=== PATIENT | male | born 1955 | race Caucasian/White ===

== ENCOUNTER → 2016-09-16 | Outpatient (CLI) | payer BC ==
[2016-09-16 07:34] LABS: Basophils # (A) 0.1 k/uL (0-0.2); Basophils % (A) 1 %; CHCM 33.7; Eosinophils # (A) 0.2 k/uL (0-0.7); Eosinophils % (A) 2 %; HCT 51.4 % (39.0-53.0); HDW 2.49; HGB 16.7 gm/dL (13.0-17.5); Luc # (Auto) 0.27; Luc % (Auto) 3; Lymphocytes # (A) 2.4 k/uL (1.0-4.8); Lymphocytes % (A) 23 %; MCHC 32.5 g/dL (31.0-37.0); MCV 98.2 fL (80.0-100.0); Monocytes # (A) 0.6 k/uL (0-1.0); Monocytes % (A) 6 %; Neutrophils # (A) 6.7 k/uL (1.3-7.7); Neutrophils % (A) 66 %; RBC 5.24 m/uL (4.30-5.90); RDW 13.6 % (11.5-15.5); WBC 10.2 k/uL (3.8-10.6); WBC (Perox) 10.14
[2016-09-16 07:37] LABS: ALT 33 U/L (21-72); AST 20 U/L (17-59); Alkaline Phosphatase 74 U/L (38-126); Anion Gap 11 mmol/L; Appearance,Urine Clear (Clear); Bilirubin,Urine Negative (Negative); Blood Urea Nitrogen 13 mg/dL (9-20); Calcium 9.6 mg/dL (8.4-10.2); Carbon Dioxide 25 mmol/L (22-30); Chloride 104 mmol/L (98-107); Cholesterol 137 mg/dL (<200); Creatine Kinase 64 U/L (55-170); Glucose 190 mg/dL (74-99); Glucose,Urine (UA) 3+ (Negative); HDL Cholesterol 34 mg/dL (40-60); Ketones,Urine Negative (Negative); Leukocyte Esterase,Urine Negative (Negative); Mucus,Urine Rare /hpf; Nitrite,Urine Negative (Negative); Non-African American GFR(MDRD) >60 (>60 ml/min/1.73 sqM); PH, Urine 5.5 (5.0-8.0); Particle Count 1653; Potassium 4.6 mmol/L (3.5-5.1); Protein,Urine Negative (Negative); RBC,Urine 6 /hpf (0-5); Sodium 140 mmol/L (137-145); Specific Gravity,Urine 1.015 (1.001-1.035); Total Bilirubin 0.5 mg/dL (0.2-1.3); Triglycerides 206 mg/dL (<150); UA Billing (MACRO vs. MICRO) MICRO; Uric Acid 3.8 mg/dL (3.5-8.5); Urobilinogen,Urine <2.0 mg/dL (<2.0); WBC,Urine 1 /hpf (0-5)
[2016-09-16 08:48] LABS: Hemoglobin A1C 8.9 % (4.2-6.1)
== END | disposition home or self-care (01) ==
LOC: LABWHC1 06:36
PROVIDERS: ATTEND Internal Medicine
DX: G47.33 Obstructive sleep apnea (adult) (pediatric) (principal); I10 Essential (primary) hypertension; E78.5 Hyperlipidemia, unspecified; E11.9 Type 2 diabetes mellitus without complications
CPT/HCPCS: 36415; 80053; 80061; 81001; 82306; 82550; 83036; 84439; 84443; 84550; 85025

== ENCOUNTER → 2017-04-26 | Outpatient (CLI) | payer BC ==
[2017-04-26 08:32] LABS: Basophils # (A) 0.1 k/uL (0-0.2); Basophils % (A) 1 %; CH 33.3; CHCM 33.2; Eosinophils # (A) 0.3 k/uL (0-0.7); Eosinophils % (A) 3 %; HDW 2.39; HGB 16.7 gm/dL (13.0-17.5); Luc # (Auto) 0.21; Luc % (Auto) 2; Lymphocytes # (A) 2.9 k/uL (1.0-4.8); Lymphocytes % (A) 29 %; MCH 33.7 pg (25.0-35.0); MCHC 33.4 g/dL (31.0-37.0); MCV 101.1 fL (80.0-100.0); Macrocytosis Slight; Mean Platelet Volume 7.7; Monocytes # (A) 0.6 k/uL (0-1.0); Monocytes % (A) 6 %; Neutrophils % (A) 59 %; RBC 4.95 m/uL (4.30-5.90); RDW 14.7 % (11.5-15.5); WBC 10.1 k/uL (3.8-10.6); WBC (Perox) 7.93
[2017-04-26 08:42] LABS: ALT 34 U/L (21-72); AST 18 U/L (17-59); Alkaline Phosphatase 59 U/L (38-126); Anion Gap 12 mmol/L; Blood Urea Nitrogen 15 mg/dL (9-20); Calcium 9.7 mg/dL (8.4-10.2); Carbon Dioxide 24 mmol/L (22-30); Chloride 107 mmol/L (98-107); Cholesterol 146 mg/dL (<200); Creatine Kinase 61 U/L (55-170); Glucose 152 mg/dL (74-99); HDL Cholesterol 37 mg/dL (40-60); Non-African American GFR(MDRD) >60 (>60 ml/min/1.73 sqM); Sodium 143 mmol/L (137-145); Total Bilirubin 0.4 mg/dL (0.2-1.3); Uric Acid 3.4 mg/dL (3.5-8.5)
[2017-04-26 09:08] LABS: Hemoglobin A1C 8.1 % (4.2-6.1)
== END | disposition home or self-care (01) ==
LOC: LABWHC1 08:05
PROVIDERS: ATTEND Internal Medicine
DX: I10 Essential (primary) hypertension (principal); E78.5 Hyperlipidemia, unspecified; E11.9 Type 2 diabetes mellitus without complications
CPT/HCPCS: 36415; 80053; 80061; 82550; 83036; 84439; 84443; 84550; 85025

== ENCOUNTER → 2017-08-13 | Outpatient (CLI) | payer BC ==
--- NOTE | 2017-08-13 14:19 | US ---
EXAMINATION TYPE: US kidneys/renal and bladder DATE OF EXAM: 08/13/2017 COMPARISON: CT 02/13/2011 CLINICAL HISTORY: Benign Essential Microscopic Hematuria R31.1. EXAM MEASUREMENTS: Right Kidney: 13.3 x 7.4 x 6.4 cm Left Kidney: 13.0 x 6.4 x 6.5 cm Right Kidney: No hydronephrosis. Hyperechoic area visualized measuring 0.9 x 1.1 x 1.0 cm. Compatible with findings on prior CT, probable angiomyolipoma. Echogenic foci visualized in the lower pole jeanie uring 1.2 cm Left Kidney: No hydronephrosis. Cystic area visualized mid pole measuring 0.9 x 0.9 x 1.0 cm Bladder: wnl Bilateral Jets seen: Yes There is no evidence for hydronephrosis at this point in time. Cortical medullary differentiation is maintained. The urinary bladder is anechoic. Bilateral ureteral jets are seen. IMPRESSION: Possible nonobstructing right nephrolithiasis on the right. Angiomyolipoma on the right.
== END | disposition home or self-care (01) ==
LOC: RADUSWWP 13:27
PROVIDERS: ATTEND Internal Medicine
DX: D17.71 Benign lipomatous neoplasm of kidney (principal); R31.1 Benign essential microscopic hematuria
CPT/HCPCS: 76770

== ENCOUNTER 2017-11-23 00:51 | Observation (INO) | payer BC ==
[2017-11-23] MEDS ORDERED: NITROGLYCERIN SL TABS 0.4 MG TAB SUBLINGUAL STA (01:07)
[2017-11-23] MEDS ORDERED: MORPHINE SULFATE 4 MG/ML SYRINGE IVP STA (01:07)
[2017-11-23] MEDS ORDERED: ASPIRIN 81 MG PO STA (01:07)
[2017-11-23 01:26] LABS: Basophils # (A) 0.1 k/uL (0-0.2); Basophils % (A) 0 %; Eosinophils # (A) 0.4 k/uL (0-0.7); Eosinophils % (A) 3 %; HCT 46.3 % (39.0-53.0); HGB 15.8 gm/dL (13.0-17.5); Lymphocytes # (A) 3.1 k/uL (1.0-4.8); Lymphocytes % (A) 19 %; MCH 31.4 pg (25.0-35.0); MCHC 34.1 g/dL (31.0-37.0); MCV 91.9 fL (80.0-100.0); Monocytes # (A) 0.8 k/uL (0-1.0); Monocytes % (A) 5 %; Neutrophils # (A) 11.3 k/uL (1.3-7.7); Neutrophils % (A) 71 %; Platelet Count 251 k/uL (150-450); RBC 5.03 m/uL (4.30-5.90); WBC 15.9 k/uL (3.8-10.6)
[2017-11-23 01:35] LABS: ALT 40 U/L (21-72); AST 21 U/L (17-59); Albumin 4.4 g/dL (3.5-5.0); Alkaline Phosphatase 81 U/L (38-126); Anion Gap 14 mmol/L; Blood Urea Nitrogen 22 mg/dL (9-20); Calcium 10.3 mg/dL (8.4-10.2); Carbon Dioxide 23 mmol/L (22-30); Chloride 102 mmol/L (98-107); Glucose 142 mg/dL (74-99); Magnesium 1.4 mg/dL (1.6-2.3); Sodium 139 mmol/L (137-145); Total Bilirubin 0.3 mg/dL (0.2-1.3); Total Protein 6.8 g/dL (6.3-8.2)
[2017-11-23 01:36] LABS: Partial Thromboplastin Time 26.3 sec (22.0-30.0); Prothrombin Time 10.1 sec (9.0-12.0)
--- NOTE | 2017-11-23 01:36 | XR ---
EXAMINATION TYPE: XR chest 2V DATE OF EXAM: 11/23/2017 COMPARISON: 12/15/2014 HISTORY: Chest pain TECHNIQUE: Frontal and lateral views of the chest are obtained. FINDINGS: There is no heart failure nor confluent pneumonic infiltrate. There are sternal wires. Hea rt size is normal. Costophrenic angles are clear. Is some mild pleural thickening at the left cardiop hrenic angle. Bony thorax is intact. IMPRESSION: No active cardiopulmonary disease. No change.
[2017-11-23 01:52] LABS: Creatine Kinase 74 U/L (55-170)
[2017-11-23 02:05] LABS: Creatine Kinase MB 0.8 ng/mL (0.0-2.4); Troponin I <0.012 ng/mL (0.000-0.034)
[2017-11-23] MEDS ORDERED: ACETAMINOPHEN TAB 325 MG TAB PO PRN (03:24)
[2017-11-23] MEDS ORDERED: NITROGLYCERIN SL TABS 0.4 MG TAB SUBLINGUAL PRN (03:24)
[2017-11-23] MEDS ORDERED: MORPHINE SULFATE 4 MG/ML SYRINGE IVP PRN (03:24)
--- NOTE | 2017-11-23 03:24 | ED ---
Chest Pain HPI - General Chief Complaint: Chest Pain Stated Complaint: chest pain HX of bypass Time Seen by Provider: 11/23/17 01:01 Source: patient Mode of arrival: ambulatory Limitations: no limitations - History of Present Illness Initial Comments: 61 years old male presents with a chest pain started at 11:30 last night, he has history of ischemic heart disease he status post CABG 3 years ago at that time he was exactly exerting himself but he was busy cleaning his fish. He denies any nausea no vomiting no cold sweats pain initially was 10/10 now it has gotten a lot better right now is 5/10 he did seen his jacquard plate maker recently he said he hasn't had any stress test. He denies any shortness of breath he denies any pleuritic chest pain. No headaches no stiff neck no abdominal pain no frequency urgency dysuria no signs of CVA or TIA - Related Data Allergies Allergy/AdvReac Type Severity Reaction Status Date / Time No Known Allergies Allergy Verified 11/23/17 00:57 Review of Systems ROS Statement: Those systems with pertinent positive or pertinent negative responses have been documented in the HPI. ROS Other: All systems not noted in ROS Statement are negative. EKG Findings - EKG Comments: EKG Findings:: EKG is normal sinus rhythm ventricular rate is 87 CA interval is 186 QRS duration is 152 QT/QTc is 410/493 noticed some right bundle branch block Past Medical History Past Medical History: Coronary Artery Disease (CAD), Diabetes Mellitus History of Any Multi-Drug Resistant Organisms: None Reported Past Surgical History: Cholecystectomy, Coronary Bypass/CABG, Hernia Repair, Orthopedic Surgery Past Psychological History: No Psychological Hx Reported Smoking Status: Current some day smoker Past Alcohol Use History: None Reported Past Drug Use History: None Reported General Exam - General Exam Comments Initial Comments: General: The patient is awake and alert, in no distress, and does not appear acutely ill. Skin: Skin is warm and dry and no rashes or lesions are noted. Eye: Pupils are equal, round and reactive to light, extra-ocular movements are intact; there is normal conjunctiva bilaterally. Ears, nose, mouth and throat: There are moist mucous membranes and no oral lesions. Neck: The neck is supple, there is no tenderness or JVD. Cardiovascular: There is a regular rate and rhythm. No murmur, rub or gallop is appreciated. Respiratory: To auscultation bilateral, no wheezing no rhonchi no distress respiratory lozano noticed Gastrointestinal: Soft, non-distended, non-tender abdomen without masses or organomegaly noted. There is no rebound or guarding present. Bowel sounds are unremarkable. Back: There is no tenderness to palpation in the midline. There is no obvious deformity. Musculoskeletal: Normal ROM, no tenderness, There is no pedal edema. There is no calf tenderness or swelling. No cords were appreciated. Neurological: CN II-XII intact, Cranial nerves III through XII are intact. There are no obvious motor or sensory deficits. Coordination appears grossly intact. Speech is normal. Psychiatric: Cooperative, appropriate mood & affect, normal judgment. Limitations: no limitations Course Vital Signs 11/23/17 11/23/17 11/23/17 00:52 01:16 02:14 Temperature 97.8 F Pulse Rate 91 90 Pulse Rate [ 88 Casing Tester ] Respiratory 18 18 Rate Blood Pressure 128/59 110/65 O2 Sat by Pulse 97 96 Oximetry Upon reassessment noticed that EKG is unremarkable noticed white count is slightly elevated is 15.9 with slight chest left shift troponin EKG comprehensive metabolic panel vitals and chest x-ray are unremarkable considering his history of heart disease and Is comparatively her younger age [address] Burgess her service cardiology be consulted Disposition Clinical Impression: Chest pain, Leukocytosis Disposition: ADMITTED IP TO THIS HOSP Condition: Good Referrals: Sherman Rodriguez MD [Primary Care Provider] - 1-2 days
[2017-11-23 08:21] LABS: Creatine Kinase 62 U/L (55-170)
[2017-11-23 08:34] LABS: Creatine Kinase MB 0.7 ng/mL (0.0-2.4); Troponin I <0.012 ng/mL (0.000-0.034)
[2017-11-23] MEDS ORDERED: MORPHINE ORAL SOLN 10 MG/5 ML CUP PO PRN (10:20)
--- NOTE | 2017-11-23 12:02 | P.CRDCN ---
History of Present Illness Consult date: 11/23/17 History of present illness: Mr. Garcia is a pleasant 61-year-old male past medical history significant for coronary artery disease, paroxysmal atrial fibrillation, hypertension, dyslipidemia. He underwent 3-vessel bypass grafting in 2008, ROCHA- LAD, VG-OM1 and VG-PLB. He follows with Dr. Nash in the office. We have been asked to see him in consultation for chest pain. He states yesterday he went fishing in the morning came home and was starting to clean his fish. He developed a pain in the left precordial region described as a heavy tight sensation the pain remained localized to the precordial region with no radiation to the arms back neck or jaw. He denies associated shortness of breath, dizziness, palpitations, nausea, vomiting or diaphoresis. This sensation persisted for about a half an hour and he decided to present to the hospital for evaluation. The time he arrived to the hospital the intensity had decreased and he continued to feel a mild tenderness in the anterior upper midsternal region. EKG reveals sinus mechanism with right bundle branch block pattern. Chest x-ray is negative for an acute cardiopulmonary process. Laboratory data reviewed, WBC 15.9, hemoglobin 15.8, platelets 251, sodium 139, potassium 4.0, magnesium 1.4, cardiac enzymes negative 2. Current cardiac medications include enalapril 5 mg daily, aspirin 81 mg daily, atorvastatin 80 mg daily, and Lopressor 50 mg daily. He also takes metformin, Actos and Amaryl. Most recent Lexiscan stress test performed in the office February 2017 reveals an abnormal perfusion with a small reversible defect involving the apical lateral segment. Most recent echocardiogram performed in the office February 2017 reveals preserved left ventricular systolic function with ejection fraction 55%, mild concentric left ventricular hypertrophy, mild mitral regurgitation. Review of Systems At the time of my exam: CONSTITUTIONAL: Denies fever. Denies chills. EYES: Denies blurred vision. Denies vision changes. Denies eye pain. EARS, NOSE, MOUTH & THROAT: Denies headache. Denies sore throat. Denies ear pain. CARDIOVASCULAR: Tender sensation upper anterior midsternal region. Denies shortness of breath. Denies orthopnea. Denies PND. Denies palpitations. RESPIRATORY: Denies cough. GASTROINTESTINAL: Denies abdominal pain. Denies diarrhea. Denies constipation. Denies nausea. Denies vomiting. MUSCULOSKELETAL: Denies myalgias. INTEGUMENTARY: Denies pruitis. Denies rash. NEUROLOGIC: Denies numbness. Denies tingling. Denies weakness. PSYCHIATRIC: Denies anxiety. Denies depression. ENDOCRINE: Denies fatigue. Denies weight change. Denies polydipsia. Denies polyurina. GENITOURINARY: Denies burning, hematuria or urgency with micturation. HEMATOLOGIC: Denies history of anemia. Denies bleeding. Past Medical History Past Medical History: Coronary Artery Disease (CAD), Diabetes Mellitus History of Any Multi-Drug Resistant Organisms: None Reported Past Surgical History: Cholecystectomy, Coronary Bypass/CABG, Hernia Repair, Orthopedic Surgery Past Psychological History: No Psychological Hx Reported Smoking Status: Current some day smoker Past Alcohol Use History: None Reported Past Drug Use History: None Reported - Past Family History Father Family Medical History: No Reported History Additional Family Medical History / Comment(s): Father is healthy and is 87yrs old. Mother Family Medical History: No Reported History Additional Family Medical History / Comment(s): Mother is healthy and is 85 yrs old. Medications and Allergies Home Medications Medication Instructions Recorded Confirmed Type Aspirin EC [Ecotrin Low Dose] 81 mg PO DAILY 11/23/17 11/23/17 History Atorvastatin [Lipitor] 80 mg PO HS 11/23/17 11/23/17 History Enalapril [Vasotec] 5 mg PO DAILY 11/23/17 11/23/17 History Glimepiride [Amaryl] 4 mg PO AC-BID 11/23/17 11/23/17 History Liraglutide [Victoza 2-Rodger] 1.2 mg SQ DAILY 11/23/17 11/23/17 History Metoprolol Tartrate [Lopressor] 50 mg PO BID 11/23/17 11/23/17 History Nitroglycerin Sl Tabs [Nitrostat] 0.4 mg SUBLINGUAL Q5M PRN 11/23/17 11/23/17 History sitaGLIPtin PHOS/metFORMIN HCL 1 tab PO DAILY 11/23/17 11/23/17 History [Janumet Xr 100-1,000 mg Tablet] Allergies Allergy/AdvReac Type Severity Reaction Status Date / Time No Known Allergies Allergy Verified 11/23/17 07:21 Physical Exam Vitals: Vital Signs Temp Pulse Pulse Resp BP Pulse Ox 11/23/17 08:24 85 16 114/74 98 11/23/17 06:37 98.7 F 79 20 126/69 97 11/23/17 05:00 88 20 118/83 97 11/23/17 04:00 68 18 98/56 98 11/23/17 02:14 90 18 110/65 96 11/23/17 01:16 88 11/23/17 00:52 97.8 F 91 18 128/59 97 Intake and Output 11/22/17 11/23/17 11/23/17 22:59 06:59 14:59 Other: Weight 55.792 kg Blood pressure 114/74 heart rate 85 afebrile maintaining oxygen saturation on nasal cannula 3 L GENERAL: This is a 61-year-old male in no apparent distress at the time of my examination. HEENT: Head is atraumatic, normocephalic. Pupils are equal, round. Sclerae anicteric. Conjunctivae are clear. Mucous membranes of the mouth are moist. Neck is supple. There is no jugular venous distention. No carotid bruit is heard. LUNGS: Clear to auscultation no wheezes, rales or rhonchi. No chest wall tenderness is noted on palpation or with deep breathing. HEART: Regular rate and rhythm without murmurs, rubs or gallops. S1 and S2 heard. ABDOMEN: Soft, nontender. Bowel sounds are heard. No organomegaly noted. EXTREMITIES: No evidence of peripheral edema and no calf tenderness noted. VASCULAR: Radial and dorsalis pedis pulses palpated, no evidence of clubbing. NEUROLOGIC: Patient is awake, alert and oriented x3. Results 11/23/17 01:10 11/23/17 01:10 Cardiac Enzymes 11/23/17 11/23/17 11/23/17 Range/Units 01:10 01:10 07:27 AST 21 (17-59) U/L CK-MB (CK-2) 0.8 0.7 (0.0-2.4) ng/mL Troponin I <0.012 <0.012 (0.000-0.034) ng/mL Coagulation 11/23/17 Range/Units 01:10 PT 10.1 (9.0-12.0) sec APTT 26.3 (22.0-30.0) sec CBC 11/23/17 Range/Units 01:10 WBC 15.9 H (3.8-10.6) k/uL RBC 5.03 (4.30-5.90) m/uL Hgb 15.8 (13.0-17.5) gm/dL Hct 46.3 (39.0-53.0) % Plt Count 251 (150-450) k/uL Comprehensive Metabolic Panel 11/23/17 Range/Units 01:10 Sodium 139 (137-145) mmol/L Potassium 4.0 (3.5-5.1) mmol/L Chloride 102 (98-107) mmol/L Carbon Dioxide 23 (22-30) mmol/L BUN 22 H (9-20) mg/dL Creatinine 0.70 (0.66-1.25) mg/dL Glucose 142 H (74-99) mg/dL Calcium 10.3 H (8.4-10.2) mg/dL AST 21 (17-59) U/L ALT 40 (21-72) U/L Alkaline Phosphatase 81 (38-126) U/L Total Protein 6.8 (6.3-8.2) g/dL Albumin 4.4 (3.5-5.0) g/dL Current Medications Generic Name Dose Route Start Last Admin Trade Name Freq PRN Reason Stop Dose Admin Acetaminophen 650 mg 11/23/17 03:24 Tylenol Tab PO Q4HR PRN Pain Aspirin 325 mg 11/24/17 09:00 Aspirin PO DAILY KEY Morphine Sulfate 2 mg 11/23/17 03:24 Morphine Sulfate (Inj) IVP Q5M PRN Chest Pain Nitroglycerin 0.4 mg 11/23/17 03:24 Nitrostat SUBLINGUAL Q5M PRN Chest Pain Intake and Output 11/22/17 11/23/17 11/23/17 22:59 06:59 14:59 Other: Weight 55.792 kg 11/23/17 01:10 11/23/17 01:10 Assessment and Plan Assessment: ASSESSMENT 1. Unstable angina 2. History of coronary artery disease s/p 3-vessel bypass grafting 3. Hypertension 4. Dyslipidemia 5. Nicotine dependence PLAN From cardiology perspective, this has been discussed with his primary parimutuel ticket cashier Dr. Nash and cardiac catherization is recommended. I have discussed the risks, benefits and alternative therapies for the above- mentioned procedure and for both sedation/analgesia as well as necessary blood product administration, if indicated, as they pertain to this patient. The patient has indicated understanding and acceptance of the risks and procedures discussed. Questions have been answered appropriately. Case has been boarded for tomorrow, NPO after midnight. Further recommendations based on clinical course. Thank you kindly for this consultation. Nurse Practitioner note has been reviewed, I agree with a documented findings and plan of care. Patient was seen and examined.
[2017-11-23] MEDS ORDERED: ALPRAZolam 0.25 MG TAB PO PRN (12:40)
[2017-11-23] MEDS ORDERED: ALPRAZolam 0.5 MG TAB PO PRN (12:40)
[2017-11-23] MEDS ORDERED: SODIUM CHLORIDE 0.9% 1,000 ML in EMPTY BAG 1 BAG IV ONE (12:40)
[2017-11-23 13:54] LABS: Creatine Kinase 58 U/L (55-170)
[2017-11-23 14:07] LABS: Creatine Kinase MB 0.7 ng/mL (0.0-2.4); Troponin I <0.012 ng/mL (0.000-0.034)
[2017-11-23] MEDS: METOPROLOL TARTRATE 50 MG TAB PO SCH ×2 (18:20→20:59)
[2017-11-23] MEDS: LISINOPRIL 10 MG TAB PO SCH (18:20)
[2017-11-23 20:39] LABS: Glucose,Whole Blood 166 mg/dL (75-99)
[2017-11-23] MEDS: ATORVASTATIN 80 MG TAB PO SCH (20:59)
[2017-11-23] MEDS: INSULIN ASPART 100 UNIT/ML 1 ML 10 ML VIAL SQ SCH (21:00)
[2017-11-24] MEDS: METOPROLOL TARTRATE 50 MG TAB PO SCH ×2 (05:20→21:08)
[2017-11-24] MEDS: LISINOPRIL 10 MG TAB PO SCH (05:20)
[2017-11-24 07:16] LABS: Glucose,Whole Blood 179 mg/dL (75-99)
[2017-11-24 08:07] LABS: Cholesterol 121 mg/dL (<200); HDL Cholesterol 27 mg/dL (40-60); LDL Cholesterol,Calculated 60 mg/dL (0-99); Triglycerides 169 mg/dL (<150)
[2017-11-24] MEDS ORDERED: IV FLUID CONTINUATION 1,000 ML IV ONE (08:55)
[2017-11-24] MEDS ORDERED: fentaNYL (PF) 50 MCG/ML 2 ML AMP ONE (08:57)
[2017-11-24] MEDS ORDERED: MIDAZOLAM 2 MG/2 ML VIAL ONE ×2 (08:57→11:30)
[2017-11-24] MEDS ORDERED: ASPIRIN 325 MG TAB PO SCH (09:00)
[2017-11-24] MEDS ORDERED: fentaNYL (PF) 50 MCG/ML 2 ML AMP IV ONE (09:02)
[2017-11-24] MEDS ORDERED: MIDAZOLAM 2 MG/2 ML VIAL IV ONE (09:02)
[2017-11-24] MEDS ORDERED: LIDOCAINE 2% INJ 20 MG/ML SQ ONE ×2 (09:09→12:35)
[2017-11-24] MEDS: INSULIN ASPART 100 UNIT/ML 1 ML 10 ML VIAL SQ SCH ×4 (09:41→21:08)
[2017-11-24] MEDS ORDERED: RX INFO: IV CONTRAST WAS GIVEN 1 EACH MISC MISCELLANE PRN ×2 (09:44→12:45)
[2017-11-24] MEDS ORDERED: IOPAMIDOL-370 125ML BTL INJ ONE (09:50)
--- NOTE | 2017-11-24 10:03 | P.PCN ---
Date of Procedure: 11/24/17 Preoperative Diagnosis: Chest pain with history of a positive stress test. Postoperative Diagnosis: ROCHA graft to the LAD and vein graft to the circumflex are patent. The vein graft to the RCA is total. There is significant lesion involving the PLV and PDA branches. Description of Procedure: HISTORY: Mr. Macario is a 61-year-old gentleman with history of previous bypass surgery with the ROCHA graft to the LAD, vein graft to circumflex and also vein graft to the PLV branch of the RCA. Patient had a stress test in February 2017 which showed some ischemia in the inferolateral segments. Patient is admitted now to the hospital with the left-sided chest pain with some atypical features. Cardiac enzyme studies are negative. Because of multiple risk factors and known ischemic heart disease, patient is advised to have cardiac catheterization. CONSENT:I have discussed the risks, benefits and alternative therapies for the above-mentioned procedure and for both sedation/analgesia as well as necessary blood product administration, if indicated, as they pertain to this patient. The patient has indicated understanding and acceptance of the risks and procedures discussed. PROCEDURE: Patient was brought to the lab in a fasting state. Patient was given some IV sedation. The right groin is infiltrated with lidocaine and right femoral artery was entered using Seldinger technique. A 6-[place] catheter was left in place and selective coronary arteriography and left ventriculography was performed. Patient tolerated the procedure well. Femoral angiogram was performed and Angio-Seal was applied for hemostasis. No immediate complications were noted and patient was transferred to [facility] in a stable condition Conscious Sedation: Versed 1mg Fentanyl 50 g Duration 30minutes HEMODYNAMICS: The aortic pressure is 130/70. Left ventricular end-diastolic pressure was about 10-12. There was no gradient across the aortic valve. SELECTIVE CORONARY ARTERIOGRAPHY: LEFT MAIN: Ectatic and free of any significant focal lesions. THE LEFT ANTERIOR DESCENDING CORONARY ARTERY: Huge caliber vessel with ectatic changes. There is about eccentric 80% stenosis proximally and totally occluded in the midportion with some competent to flow. There are small diagonal and septal branches before total occlusion. THE LEFT CIRCUMFLEX AND IS CORONARY ARTERY: This is a also good caliber vessel and totally occluded in the proximal portion. THE RIGHT CORONARY ARTERY: This is also ectatic huge caliber vessel giving rise to PLV and PDA branches. The PLV branch has about 95 % stenosis. The PDA branch also has a 95% stenosis. The PLV branch lesion is old but the PDA branch lesion seemed to be new. However the distal distribution beyond the lesion appears to be small. New THE ROCHA GRAFT TO THE LAD: This is patent throat its length and also to distal anastomosis. The LAD is filled slowly but appears to be diffusedly diseased was noted to see a. No Sigmund focal lesions. The vein graft to the CIRCUMFLEX: Is patent at the proximal and distal anastomosis. The distal circumflex is free of any significant occlusive disease. THE VEIN GRAFT TO THE RIGHT RCA: This seemed to be totally occluded. LEFT VENTRICULOGRAPHY: Not performed FINAL IMPRESSION: Diffuse coronary artery disease with a total occlusion of the mid LAD and also mid circumflex with significant lesion involving the PLV and PDA branch of the RCA. The main ROCHA graft to LAD is patent. The vein graft to the circumflex is patent. The vein graft to the RCA is totally occluded PLAN: The films are reviewed with Dr. IBIS Velez was planning to do possible intervention of the PLV and PDA lesions later today. PROGNOSIS: Fair
[2017-11-24] MEDS ORDERED: IV FLUID CONTINUATION 200 ML IV ONE (11:15)
[2017-11-24] MEDS ORDERED: diphenhydrAMINE 50 MG/ML 1 ML VIAL ONE (11:30)
[2017-11-24] MEDS ORDERED: diphenhydrAMINE 50 MG/ML 1 ML VIAL IVP ONE (11:33)
[2017-11-24] MEDS ORDERED: MIDAZOLAM 2 MG/2 ML VIAL IVP ONE (11:33)
[2017-11-24] MEDS ORDERED: BIVALIRUDIN BOLUS 250 MG/50 ML IV ONE (11:40)
[2017-11-24] MEDS ORDERED: BIVALIRUDIN 250 MG in SODIUM CHLORIDE 0.9% 50 ML IV ONE ×2 (11:41→12:00)
[2017-11-24] MEDS ORDERED: SODIUM CHLORIDE 0.9% 1,000 ML IV ONE (11:51)
[2017-11-24 12:02] LABS: Hemoglobin A1C 7.3 % (4.0-6.0)
[2017-11-24] MEDS ORDERED: IOPAMIDOL-370 100ML BTL INJ ONE ×2 (12:15→12:38)
[2017-11-24] MEDS ORDERED: TICAGRELOR 90 MG TAB ONE (12:28)
[2017-11-24] MEDS ORDERED: TICAGRELOR 90 MG TAB PO ONE (12:30)
[2017-11-24] MEDS ORDERED: NITROGLYCERIN 1000MCG/10ML SYRINGE INTRACORON ONE (12:31)
[2017-11-24] MEDS ORDERED: MORPHINE SULFATE 4 MG/ML SYRINGE ONE (12:35)
[2017-11-24] MEDS ORDERED: MORPHINE SULFATE 4 MG/ML SYRINGE IVP ONE (12:36)
[2017-11-24] MEDS ORDERED: MAG HYDROX/AL HYDROX/SIMETH 30 ML CUP PO PRN (12:45)
[2017-11-24] MEDS ORDERED: NITROGLYCERIN SL TABS 0.4 MG TAB SUBLINGUAL PRN (12:45)
[2017-11-24] MEDS ORDERED: ZOLPIDEM 5 MG TAB PO PRN (12:45)
[2017-11-24] MEDS ORDERED: ATROPINE SULFATE 0.1 MG/ML 10ML SYRINGE IV PRN (12:45)
--- NOTE | 2017-11-24 12:59 | P.HPIM ---
History of Present Illness H&P Date: 11/23/17 Chief Complaint: chest pain This is a 61-year-old male one of my patient with a previous medical history significant for CAD post CABG 3, with ROCHA to LAD, SVG to LCx, and SVG to the PLV of the RCA. Hypertension and hypertensive cardiovascular disease with left ventricular hypertrophy, diabetes mellitus type 2, hyperlipidemia, obesity, patient was doing better until about yesterday when he went fishing and he was the doing that for few hours and he felt little bit of soreness in the mid sternum at that time patient did not do anything about it he went back home and he started to continue the Fish and he went inside on a for few hours and he felt significant burning the left side of the chest patient the went to bed and laid down while he is laying down thought about going to the hospital for evaluation he had a twelve-lead EKG that did not show any evidence of acute of normalities, cardiac enzymes were negative, however because of his presentation patient was admitted to hospital for evaluation cardiology consultation was obtained, patient does follow-up with cardiology and regular basis and back in February 2017 he had this questionable positive stress test that time. The patient underwent left heart catheterization that the show significant disease of the vein graft to the PLV and PDA of the RCA. And he is scheduled to go for PCI of both vessels. Review of Systems Constitutional: Reports weight gain, Denies anorexia, Denies chronic headaches, Denies lethargy, Denies malaise, Denies weakness Eyes: denies blurred vision, denies bulging eye, denies decreased vision, denies diplopia Ears: deny: decreased hearing Ears, nose, mouth and throat: Denies dysphagia, Denies neck fullness/pressure, Denies swelling in throat, Denies sore throat Cardiovascular: Reports chest pain, Reports decreased exercise tolerance, Reports dyspnea on exertion, Reports high blood pressure, Reports shortness of breath, Denies rapid heart beat, Denies syncope Respiratory: Denies congestion, Denies cough with sputum, Denies home oxygen, Denies sleep apnea, Denies snoring, Denies wheezing Gastrointestinal: Denies abdominal pain, Denies bloating, Denies BRBPR, Denies heartburn, Denies melena, Denies nausea, Denies vomiting Genitourinary: Reports nocturia, Denies dysuria Musculoskeletal: Denies myalgias Musculoskeletal: absent: ankle pain, ankle stiffness, ankle swelling, elbow pain , elbow stiffness, elbow swelling, foot pain, foot stiffness, foot swelling, hand pain, hand stiffness, hand swelling, hip pain, hip stiffness, hip swelling , knee pain, knee stiffness, knee swelling, shoulder pain, shoulder stiffness, shoulder swelling, wrist pain, wrist stiffness, wrist swelling Integumentary: Denies pruritus, Denies rash Neurological: Denies numbness, Denies weakness Psychiatric: Denies anxiety, Denies depression Endocrine: Denies fatigue, Denies weight change Past Medical History Past Medical History: Coronary Artery Disease (CAD), Diabetes Mellitus, GERD/ Reflux, Hyperlipidemia, Hypertension, Osteoarthritis (OA), Prostate Disorder Additional Past Medical History / Comment(s): Recent UTI-completed antibiotic, Afib in 1982, NIDDM type II, nephrolithiasis, diverticular dx. History of Any Multi-Drug Resistant Organisms: None Reported Past Surgical History: Cholecystectomy, Coronary Bypass/CABG, Hernia Repair, Orthopedic Surgery Additional Past Surgical History / Comment(s): 2008 CABG 3 vessels, R inguinal hernia repair, R knee arthroscopy, colonoscopy. Past Anesthesia/Blood Transfusion Reactions: No Reported Reaction, Motion Sickness Past Psychological History: No Psychological Hx Reported Smoking Status: Current some day smoker Past Alcohol Use History: None Reported Past Drug Use History: None Reported - Past Family History Father Family Medical History: No Reported History Additional Family Medical History / Comment(s): Father is healthy and is 87yrs old. Mother Family Medical History: No Reported History, Osteoarthritis (OA) Additional Family Medical History / Comment(s): Mother is healthy and is 85 yrs old. Brother(s) Family Medical History: Coronary Artery Disease (CAD) (patient has one brother with CAD.) Sister(s) Family Medical History: Mitral Valve Prolapse (MVP) (patient has one sister mitral valve prolapse.) Daughter(s) Family Medical History: No Reported History (patient has one daughter no major medical problems.) Son(s) Family Medical History: No Reported History (patient has one son no major medical problems.) Medications and Allergies Home Medications Medication Instructions Recorded Confirmed Type Aspirin EC [Ecotrin Low Dose] 81 mg PO DAILY 11/23/17 11/23/17 History Atorvastatin [Lipitor] 80 mg PO HS 11/23/17 11/23/17 History Enalapril [Vasotec] 5 mg PO DAILY 11/23/17 11/23/17 History Glimepiride [Amaryl] 4 mg PO AC-BID 11/23/17 11/23/17 History Liraglutide [Victoza 2-Rodger] 1.2 mg SQ DAILY 11/23/17 11/23/17 History Metoprolol Tartrate [Lopressor] 50 mg PO BID 11/23/17 11/23/17 History Nitroglycerin Sl Tabs [Nitrostat] 0.4 mg SUBLINGUAL Q5M PRN 11/23/17 11/23/17 History sitaGLIPtin PHOS/metFORMIN HCL 1 tab PO DAILY 11/23/17 11/23/17 History [Janumet Xr 100-1,000 mg Tablet] Allergies Allergy/AdvReac Type Severity Reaction Status Date / Time No Known Allergies Allergy Verified 11/23/17 07:21 Physical Exam Vitals: Vital Signs Temp Pulse Pulse Pulse Resp BP BP 11/24/17 10:35 69 16 100/62 11/24/17 10:21 75 16 162/70 11/24/17 10:11 68 16 110/62 11/24/17 08:00 98.6 F 72 16 109/63 11/24/17 04:27 97.6 F 74 16 110/66 11/24/17 04:00 97.6 F 74 16 110/66 11/24/17 03:35 16 11/23/17 23:47 97.7 F 72 16 108/65 11/23/17 23:18 16 11/23/17 20:00 16 11/23/17 19:36 97.7 F 71 16 119/69 11/23/17 16:45 97.9 F 76 18 116/71 11/23/17 16:11 98.6 F 72 16 126/71 11/23/17 11:53 77 16 128/76 BP Pulse Ox 11/24/17 10:35 106/51 94 L 11/24/17 10:21 96 11/24/17 10:11 94 L 11/24/17 08:00 93 L 11/24/17 04:27 96 11/24/17 04:00 96 11/24/17 03:35 11/23/17 23:47 95 11/23/17 23:18 11/23/17 20:00 05/01/18 19:36 92 L 11/23/17 16:45 93 L 11/23/17 16:11 96 11/23/17 11:53 97 Intake and Output 11/23/17 11/24/17 11/24/17 22:59 06:59 14:59 Intake Total 240 420 100 Balance 240 420 100 Intake: IV 420 100 Sodium Chloride 0.9% 1, 420 000 ml In Empty Bag 1 bag @ 1 ML/KG/HR 55.79 mls/ hr IV .[id number] ONE Rx#: [id number] Oral 240 Other: Voiding Method Toilet Toilet # Voids 3 Weight 100 kg - Constitutional General appearance: no acute distress, obese - EENT Eyes: anicteric sclerae, EOMI, PERRLA, no ptosis, no scleral icterus, normal appearance ENT: hearing grossly normal, NA/AT, normal oropharynx, no thrush Ears: bilateral: normal - Neck Neck: no lymphadenopathy, normal ROM, no rigidity, no stridor, no thyromegaly Carotids: bilateral: upstroke normal Thyroid: bilateral: normal size - Respiratory Respiratory: bilateral: diminished, negative: dullness, rales, rhonchi, wheezing , prolonged expiration - Cardiovascular Rhythm: regular Heart sounds: normal: S1, S2 Abnormal Heart Sounds: systolic murmur, no S3 Gallop, no S4 Gallop, no click - Gastrointestinal General gastrointestinal: normal bowel sounds, soft, no splenomegaly, no tenderness, no umbilical hernia, no ventral hernia - Integumentary Integumentary: normal, normal turgor - Neurologic Neurologic: CNII-XII intact - Musculoskeletal Musculoskeletal: strength equal bilaterally - Psychiatric Psychiatric: A&O x's 3, appropriate affect, intact judgment & insight Results CBC & Chem 7: 11/23/17 01:10 11/23/17 01:10 Labs: Abnormal Lab Results - Last 24 Hours (Table) 11/23/17 11/24/17 11/24/17 Range/Units 20:36 06:38 07:16 POC Glucose (mg/dL) 166 H 179 H (75-99) mg/dL Triglycerides 169 H (<150) mg/dL HDL Cholesterol 27 L (40-60) mg/dL Thrombosis Risk Factor Assmnt - DVT/VTE Prophylaxis DVT/VTE Prophylaxis: Pharmacologic Prophylaxis ordered, Mechanical Prophylaxis ordered - Choose All That Apply Any of the Below Risk Factors Present?: Yes Other Risk Factors: Yes Each Risk Factor Represents 2 Points: Age 61-74 years Other congenital or acquired thrombophilia - If yes, enter type in comment: No Thrombosis Risk Factor Assessment Total Risk Factor Score: 2 Thrombosis Risk Factor Assessment Level: Low Risk Assessment and Plan Assessment: Assessment and plan: 1. Chest pain patient with a significant history of CAD post CABG with positive stress test post left heart catheterization that showed significant disease of the PLV and PDA of the RCA. Patient is scheduled to go for PCI of both vessels, continue with lifestyle changes and aggressive risk factor modifications and will antibiotic therapy and maximum dose of statin, continue with metoprolol 50 mg orally twice every day. 2. CAD post CABG with ROCHA to LAD, SVG to the LCx, SVG to the PLV. Continue treatment as in paragraph #1. 3. Hypertension and hypertensive cardiovascular disease. Continue patient on metoprolol 50 mg orally twice every day as well as lisinopril 10 mg orally once every day. 4. Hyperlipidemia. Continue Lipitor 80 mg orally once every day. 5. Diabetes mellitus type 2. Continue consistent carbohydrate diet 1800- calorie, continue with Janumet X arm 100/1000 mg once every day, continue with Victoza 1.2 mg subcutaneously daily, monitor BGM before each meal and bedtime. 6. Osteoarthritis. Stable. 7. Obesity. Diet and exercise with hospital 8. DVT prophylaxis. Continue with current treatment. 9. GI prophylaxis. Continue patient on PPI. 10. Admitted to inpatient. Estimated length of stay 2 midnights.
--- NOTE | 2017-11-24 13:45 | PTCA ---
PERCUTANEOUSTRANS CORORONARY ANGIOGRAPHY DATE OF SERVICE: 11/24/[address] Rodriguez: Thank you for the opportunity to participate in the care of Mr. Daniel Garcia. Please find enclosed my detailed PTCA report for your records. I performed stenting of PLV and PDA branches of RCA. Excellent angiographic results were achieved. Both are drug- eluting stents. He should be on dual antiplatelet therapy for one year without interruption. Thank you for your referral. Please call for questions. With kindest regards, Sincerely, ELICEO / IJN: [id number] /
--- NOTE | 2017-11-24 13:45 | PTCA ---
PERCUTANEOUSTRANS CORORONARY ANGIOGRAPHY DATE OF SERVICE: 11/24/2017. PROCEDURE: 1. PTCA and stenting of calcified chronic PLV branch of a dominant RCA with a drug- eluting stent. 2. PTCA and stenting of PDA branch of a dominant RCA with a drug-eluting stent. PERFORMED BY: Dr. Tiffanie Velez. SEDATION: Moderate conscious sedation time was 65 minutes. Patient was administered Versed and Benadryl and his oxygen saturation, EKG and hemodynamics were monitored closely. . CLINICAL INFORMATION: Mr. Daniel Garcia is a 61-year-old gentleman who underwent aortocoronary bypass surgery in 2008 with a ROCHA to LAD, vein graft to the obtuse marginal branch of circumflex and PLV branch of RCA. He presented with symptoms of chest pain. He sees Dr. Nash in the office. He also has diabetes, hypertension, and smoking. Cardiac cath revealed that the vein graft to the PLV branch was occluded but the OM graft and ROCHA were patent. He was advised intervention of the PLV and PDA, both of which had a 95% stenosis. PROCEDURE NOTE: The existing 6-Moldovan introducer in the right femoral artery was used to perform the procedure. I used an Allright 3.5 curved catheter to cannulate the right coronary artery. I used a run-through wire to cross the lesion in the PLV branch. Predilatation was performed with a 2.25 caliber 12 mm NC Trek balloon and again with a 2.5 caliber NC Trek balloon of the same length. I then deployed a 2.5 caliber 12 mm Xience stent with excellent angiographic result. I then used the same wire to cross the PDA lesion and kept it distally. I could not advance a 2.25 caliber NC Trek balloon. I used 1.5 caliber mini trek balloon and pre-dilated the lesion. I then used a 2.25 caliber 12 mm NC Trek balloon and then dilated this lesion. After this, I deployed a 2.25 caliber 8 mm long Xience stent at 12 atmospheres. Excellent angiographic result was achieved. Patient had mild chest discomfort. No significant EKG changes. He received Angiomax bolus and infusion as per protocol. He received 180 mg of Brilinta and also will be placed on 90 mg b.i.d. Excellent angiographic result without complication was achieved. The sheath was taken out and a Perclose device used to secure hemostasis. Results were discussed with the patient. He did not wish that I should talk to any family members. ELICEO / ARPITA: [id number] /
--- NOTE | 2017-11-24 14:02 | P.PN ---
Subjective Progress Note Date: 11/24/17 This is a 61-year-old male one of my patient with a previous medical history significant for CAD post CABG 3, with ROCHA to LAD, SVG to LCx, and SVG to the PLV of the RCA. Hypertension and hypertensive cardiovascular disease with left ventricular hypertrophy, diabetes mellitus type 2, hyperlipidemia, obesity, patient was doing better until about yesterday when he went fishing and he was the doing that for few hours and he felt little bit of soreness in the mid sternum at that time patient did not do anything about it he went back home and he started to continue the Fish and he went inside on a for few hours and he felt significant burning the left side of the chest patient the went to bed and laid down while he is laying down thought about going to the hospital for evaluation he had a twelve-lead EKG that did not show any evidence of acute of normalities, cardiac enzymes were negative, however because of his presentation patient was admitted to hospital for evaluation cardiology consultation was obtained, patient does follow-up with cardiology and regular basis and back in February 2017 he had this questionable positive stress test that time. The patient underwent left heart catheterization that the show significant disease of the vein graft to the PLV and PDA of the RCA. And he is scheduled to go for PCI of both vessels. 11/24: Patient is undergoing PCI today and will be transferred up to the selective care unit. Most likely anticipate discharge home tomorrow. Triglycerides 169, cholesterol 121, LDL 60, HDL 27. Hemoglobin A1c came back at 7.3. Objective - Vital Signs Vital signs: Vital Signs Temp 98.6 F 11/24/17 08:00 Pulse 72 11/24/17 08:00 Resp 16 11/24/17 08:00 BP 109/63 11/24/17 08:00 Pulse Ox 93 L 11/24/17 08:00 Intake & Output 11/23/17 11/24/17 11/24/17 18:59 06:59 18:59 Intake Total 240 420 100 Balance 240 420 100 Weight 100 kg Intake: IV 420 100 Sodium Chloride 0.9% 1, 420 000 ml In Empty Bag 1 bag @ 1 ML/KG/HR 55.79 mls/ hr IV .[id number] ONE Rx#: [id number] Oral 240 Other: Voiding Method Toilet # Voids 3 - Exam General appearance: no acute distress, obese - EENT Eyes: anicteric sclerae, EOMI, PERRLA, no ptosis, no scleral icterus, normal appearance ENT: hearing grossly normal, NA/AT, normal oropharynx, no thrush Ears: bilateral: normal - Neck Neck: no lymphadenopathy, normal ROM, no rigidity, no stridor, no thyromegaly Carotids: bilateral: upstroke normal Thyroid: bilateral: normal size - Respiratory Respiratory: bilateral: diminished, negative: dullness, rales, rhonchi, wheezing , prolonged expiration - Cardiovascular Rhythm: regular Heart sounds: normal: S1, S2 Abnormal Heart Sounds: systolic murmur, no S3 Gallop, no S4 Gallop, no click - Gastrointestinal General gastrointestinal: normal bowel sounds, soft, no splenomegaly, no tenderness, no umbilical hernia, no ventral hernia - Integumentary Integumentary: normal, normal turgor - Neurologic Neurologic: CNII-XII intact - Musculoskeletal Musculoskeletal: strength equal bilaterally - Psychiatric Psychiatric: A&O x's 3, appropriate affect, intact judgment & insight - Labs CBC & Chem 7: 11/23/17 01:10 11/23/17 01:10 Labs: Abnormal Lab Results - Last 24 Hours (Table) 11/23/17 11/24/17 11/24/17 Range/Units 20:36 06:38 07:16 POC Glucose (mg/dL) 166 H 179 H (75-99) mg/dL Triglycerides 169 H (<150) mg/dL HDL Cholesterol 27 L (40-60) mg/dL Assessment and Plan Plan: 1. Chest pain patient with a significant history of CAD post CABG with positive stress test post left heart catheterization that showed significant disease of the PLV and PDA of the RCA. Patient is scheduled to go for PCI of both vessels, continue with lifestyle changes and aggressive risk factor modifications and will antibiotic therapy and maximum dose of statin, continue with metoprolol 50 mg orally twice every day. 2. CAD post CABG with ROCHA to LAD, SVG to the LCx, SVG to the PLV. Continue treatment as in paragraph #1. 3. Hypertension and hypertensive cardiovascular disease. Continue patient on metoprolol 50 mg orally twice every day as well as lisinopril 10 mg orally once every day. 4. Hyperlipidemia. Continue Lipitor 80 mg orally once every day. 5. Diabetes mellitus type 2. Continue consistent carbohydrate diet 1800- calorie, continue with Janumet X arm 100/1000 mg once every day, continue with Victoza 1.2 mg subcutaneously daily, monitor BGM before each meal and bedtime. 6. Osteoarthritis. Stable. 7. Obesity. Diet and exercise with hospital 8. DVT prophylaxis. Continue with current treatment. 9. GI prophylaxis. Continue patient on PPI. Discharge plan: Return home Impression and plan of care have been directed as dictated by the signing physician. Samreen Landaverde nurse practitioner acting as scribe for signing physician.
[2017-11-24 14:30] VITALS: BMI 33.5
[2017-11-24] MEDS: SODIUM CHLORIDE 0.9% 1,000 ML IV SCH ×3 (14:39→23:33)
[2017-11-24 16:45] LABS: Glucose,Whole Blood 225 mg/dL (75-99)
[2017-11-24 20:53] LABS: Glucose,Whole Blood 139 mg/dL (75-99)
[2017-11-24] MEDS: ATORVASTATIN 80 MG TAB PO SCH (21:08)
[2017-11-25] MEDS: SODIUM CHLORIDE 0.9% 1,000 ML IV SCH ×2 (03:25→08:15)
[2017-11-25 05:52] LABS: Glucose,Whole Blood 207 mg/dL (75-99)
[2017-11-25 06:12] LABS: Basophils % (A) 0 %; Eosinophils # (A) 0.3 k/uL (0-0.7); Eosinophils % (A) 3 %; HCT 44.1 % (39.0-53.0); HGB 14.9 gm/dL (13.0-17.5); Lymphocytes # (A) 2.4 k/uL (1.0-4.8); Lymphocytes % (A) 22 %; MCH 31.8 pg (25.0-35.0); MCHC 33.7 g/dL (31.0-37.0); MCV 94.3 fL (80.0-100.0); Mean Platelet Volume 7.4; Monocytes # (A) 0.6 k/uL (0-1.0); Monocytes % (A) 6 %; Neutrophils # (A) 7.1 k/uL (1.3-7.7); Neutrophils % (A) 67 %; Platelet Count 203 k/uL (150-450); RBC 4.68 m/uL (4.30-5.90); WBC 10.7 k/uL (3.8-10.6)
[2017-11-25] MEDS: INSULIN ASPART 100 UNIT/ML 1 ML 10 ML VIAL SQ SCH ×2 (06:17→11:42)
[2017-11-25 06:40] LABS: Anion Gap 8 mmol/L; Blood Urea Nitrogen 13 mg/dL (9-20); Calcium 8.8 mg/dL (8.4-10.2); Carbon Dioxide 27 mmol/L (22-30); Chloride 102 mmol/L (98-107); Glucose 193 mg/dL (74-99); Potassium 4.4 mmol/L (3.5-5.1); Sodium 137 mmol/L (137-145)
[2017-11-25] MEDS: LISINOPRIL 10 MG TAB PO SCH (08:16)
[2017-11-25] MEDS: METOPROLOL TARTRATE 50 MG TAB PO SCH (08:16)
[2017-11-25] MEDS ORDERED: TICAGRELOR 90 MG TAB PO SCH (09:00)
[2017-11-25] MEDS ORDERED: ASPIRIN 81 MG PO SCH (09:00)
[2017-11-25 11:21] VITALS: BP 119/66; PULSE 63; RESP 16; TEMP 97
[2017-11-25 11:34] LABS: Glucose,Whole Blood 193 mg/dL (75-99)
--- NOTE | 2017-11-25 12:34 | P.DS ---
Providers Date of admission: 11/23/17 03:24 Expected date of discharge: 11/25/17 Attending physician: Sherman Rodriguez Consults: 11/23/17 03:24 Consult Physician Urgent Consulting Provider: Al[facility] Consult Reason/Comments: Chest pain Do you want consulting provider notified?: Yes 11/24/17 12:45 Consult Physician Routine Consulting Provider: [facility] Consult Reason/Comments: Post Interventional patient Do you want consulting provider notified?: Already Contacted Primary care physician: Sherman Rodriguez [facility] Course: This is a 61-year-old male one of my patient with a previous medical history significant for CAD post CABG 3, with ROCHA to LAD, SVG to LCx, and SVG to the PLV of the RCA. Hypertension and hypertensive cardiovascular disease with left ventricular hypertrophy, diabetes mellitus type 2, hyperlipidemia, obesity, patient was doing better until about yesterday when he went fishing and he was the doing that for few hours and he felt little bit of soreness in the mid sternum at that time patient did not do anything about it he went back home and he started to continue the Fish and he went inside on a for few hours and he felt significant burning the left side of the chest patient the went to bed and laid down while he is laying down thought about going to the hospital for evaluation he had a twelve-lead EKG that did not show any evidence of acute of normalities, cardiac enzymes were negative, however because of his presentation patient was admitted to hospital for evaluation cardiology consultation was obtained, patient does follow-up with cardiology and regular basis and back in February 2017 he had this questionable positive stress test that time. The patient underwent left heart catheterization that the show significant disease of the vein graft to the PLV and PDA of the RCA. And he is scheduled to go for PCI of both vessels. 11/24: Patient is undergoing PCI today and will be transferred up to the selective care unit. Most likely anticipate discharge home tomorrow. Triglycerides 169, cholesterol 121, LDL 60, HDL 27. Hemoglobin A1c came back at 7.3. 5: And underwent PTCA and stenting of the PLV and PDA branches of the RCA. She has been cleared for discharge by cardiology. Patient will be discharged home today in stable condition. Discharge diagnoses: 1. Chest pain patient with a significant history of CAD post CABG with positive stress test post left heart catheterization that showed significant disease of the PLV and PDA of the RCA status post stenting. 2. CAD post CABG with ROCHA to LAD, SVG to the LCx, SVG to the PLV. 3. Hypertension and hypertensive cardiovascular disease. 4. Hyperlipidemia. 5. Diabetes mellitus type 2. 6. Osteoarthritis. Stable. 7. Obesity. Discharge plan: Return home Impression and plan of care have been directed as dictated by the signing physician. Samreen Landaverde nurse practitioner acting as scribe for signing physician. Patient Condition at Discharge: Good Plan - Discharge Summary Discharge Rx Participant: No New Discharge Prescriptions: New Lisinopril [Zestril] 10 mg PO DAILY #30 tab Ticagrelor [Brilinta] 90 mg PO BID #60 tab Continue sitaGLIPtin PHOS/metFORMIN HCL [Janumet Xr 100-1,000 mg Tablet] 1 tab PO DAILY Metoprolol Tartrate [Lopressor] 50 mg PO BID Liraglutide [Victoza 2-Rodger] 1.2 mg SQ DAILY Glimepiride [Amaryl] 4 mg PO AC-BID Atorvastatin [Lipitor] 80 mg PO HS Aspirin EC [Ecotrin Low Dose] 81 mg PO DAILY Nitroglycerin Sl Tabs [Nitrostat] 0.4 mg SUBLINGUAL Q5M PRN PRN Reason: Chest Pain Discontinued Enalapril [Vasotec] 5 mg PO DAILY Discharge Medication List Aspirin EC [Ecotrin Low Dose] 81 mg PO DAILY 11/23/17 [History] Atorvastatin [Lipitor] 80 mg PO HS 11/23/17 [History] Glimepiride [Amaryl] 4 mg PO AC-BID 11/23/17 [History] Liraglutide [Victoza 2-Rodger] 1.2 mg SQ DAILY 11/23/17 [History] Metoprolol Tartrate [Lopressor] 50 mg PO BID 11/23/17 [History] Nitroglycerin Sl Tabs [Nitrostat] 0.4 mg SUBLINGUAL Q5M PRN 11/23/17 [History] sitaGLIPtin PHOS/metFORMIN HCL [Janumet Xr 100-1,000 mg Tablet] 1 tab PO DAILY 11/23/17 [History] Lisinopril [Zestril] 10 mg PO DAILY #30 tab 11/25/17 [Rx] Ticagrelor [Brilinta] 90 mg PO BID #60 tab 11/25/17 [Rx] Follow up Appointment(s)/Referral(s): Sherman Rodriguez MD [Primary Care Provider] - 1 Week Chey Nash MD [STAFF PHYSICIAN] - 12/02/17 2:30 pm () Patient Instructions/Handouts: *Surgery [facility] - After Heart Catheterization - [facility] Tube Room Instructions, Left Heart Catheterization (DC)
--- NOTE | 2017-11-25 12:58 | P.PN ---
Subjective Progress Note Date: 11/25/17 Principal diagnosis: Chest pain This is a 61-year-old gentleman who follows regularly with Dr. Nash in the office. He has known history of coronary artery disease with prior bypass surgery in 2008 at which time he underwent a ROCHA to the LAD, saphenous vein graft to the OM1, saphenous vein graft to the PLV, hypertension, hyperlipidemia, he presented to the hospital with symptoms of chest discomfort and was advised to undergo cardiac catheterization which was performed yesterday by Dr. Nash. Subsequent to that patient had angioplasty and stenting of the PLV and PDA branches of the right coronary artery. He was seen and examined this morning, denies any chest pain or difficulty in breathing. He has been up ambulating without any difficulty. White blood cell count 10.7, hemoglobin 14.9, platelet count 203. Sodium 137, potassium 4.4, BUN 13, creatinine 0.7. He may be able to be discharged home today from cardiology's perspective, follow-up appointment will be made with Dr. Nash in the office in one week. Patient will be discharged home on aspirin 81 mg daily, Lipitor 80 mg daily, Zestril 10 mg daily, metoprolol 50 mg twice a day, Brilinta 90 mg one tablet by mouth twice a day and sublingual nitroglycerin as needed for chest pain. Objective - Vital Signs Vital signs: Vital Signs Temp 97.0 F L 11/25/17 11:21 Pulse 63 11/25/17 11:23 Resp 16 11/25/17 11:23 BP 119/66 11/25/17 11:21 Pulse Ox 96 11/25/17 12:00 Intake & Output 11/24/17 11/25/17 11/25/17 18:59 06:59 18:59 Intake Total 1170 720 Output Total 300 300 Balance 870 420 Weight 100 kg 93.3 kg Intake: IV 440 Oral 730 720 Output: Urine 300 300 Other: Voiding Method Toilet Toilet # Voids 2 2 1 # Bowel Movements 0 - Exam PHYSICAL EXAMINATION: HEENT: Head is atraumatic, normocephalic. Pupils equal, round. Neck is supple. There is no elevated jugular venous pressure. HEART EXAMINATION: Heart S1, S2 normal. No murmur or gallop heard. CHEST EXAMINATION: Lungs are clear to auscultation and precussion. No chest wall tenderness is noted on palpation or with deep breathing. ABDOMEN: Soft, nontender. Bowel sounds are heard. No organomegaly noted. Right groin is soft, no evidence of any hematoma. EXTREMITIES: 2+ peripheral pulses with no evidence of peripheral edema and no calf tenderness noted. NEUROLOGIC patient is awake, alert and oriented -3. . - Labs CBC & Chem 7: 11/25/17 05:48 11/25/17 05:48 Labs: Abnormal Lab Results - Last 24 Hours (Table) 11/24/17 11/24/17 11/25/17 Range/Units 16:44 20:51 05:48 WBC 10.7 H (3.8-10.6) k/uL Glucose (74-99) mg/dL POC Glucose (mg/dL) 225 H 139 H (75-99) mg/dL 11/25/17 11/25/17 11/25/17 Range/Units 05:48 05:50 11:32 WBC (3.8-10.6) k/uL Glucose 193 H (74-99) mg/dL POC Glucose (mg/dL) 207 H 193 H (75-99) mg/dL Assessment and Plan Plan: Assessment and plan #1 chest pain status post angioplasty and stenting of the PLV and PDA branches of the RCA. #2 known history of coronary artery disease with prior bypass surgery #3 diabetes #4 hypertension #5 hyperlipidemia #6 paroxysmal atrial fibrillation Plan Patient may be discharged home today. A follow-up appointment will be made with Dr. Nash in the office in one week. Patient will be discharged home on aspirin 81 mg daily, Lipitor 80 mg daily, lisinopril 10 mg daily, metoprolol 50 mg by mouth twice a day, Brilinta 90 mg one tablet by mouth twice a day. Sublingual nitroglycerin as needed for chest pain. DNP note has been reviewed, I agree with a documented findings and plan of care. Patient was seen and examined.
== END 2017-11-25 13:08 | disposition home or self-care (01) ==
LOC: EC 00:51 → 3OBS 03:24 → 6SEL 11-24 10:02
PROVIDERS: ADMIT Internal Medicine; ATTEND Internal Medicine
DX: I25.110 Atherosclerotic heart disease of native coronary artery with unstable angina pectoris (principal); I25.710 Atherosclerosis of autologous vein coronary artery bypass graft(s) with unstable angina pectoris; I25.82 Chronic total occlusion of coronary artery; I11.9 Hypertensive heart disease without heart failure; I48.0 Paroxysmal atrial fibrillation; E78.5 Hyperlipidemia, unspecified; E11.9 Type 2 diabetes mellitus without complications; Z95.1 Presence of aortocoronary bypass graft; M19.90 Unspecified osteoarthritis, unspecified site; E66.9 Obesity, unspecified; Z68.31 Body mass index [BMI] 31.0-31.9, adult; D72.829 Elevated white blood cell count, unspecified; K21.9 Gastro-esophageal reflux disease without esophagitis; Z87.440 Personal history of urinary (tract) infections; N42.9 Disorder of prostate, unspecified; Z87.442 Personal history of urinary calculi; F17.200 Nicotine dependence, unspecified, uncomplicated; Z79.899 Other long term (current) drug therapy; Z79.82 Long term (current) use of aspirin; Z79.84 Long term (current) use of oral hypoglycemic drugs
CPT/HCPCS: 96360; 96361 ×2; 99285; 36415; 94760; 93005; 93459; 80061; 80053; 80048; 82550; 82553; 83735; 84484; 85025 ×2; 85610; 85730; 83036; 71046; G0378 ×4; C9600; C9601; C1769 ×3; C1887; C1725 ×3; C1894; C1874; C1760; J2001; J2250; J2270; J1200; J3010; J0583; Q9967 ×2

== ENCOUNTER → 2020-03-12 | Outpatient (CLI) | payer MEDICARE ==
--- NOTE | 2020-03-12 14:22 | XR ---
EXAMINATION TYPE: XR KUB DATE OF EXAM: 03/12/2020 COMPARISON: 02/13/2011 HISTORY: Pain TECHNIQUE: One view abdominal series FINDINGS: The osseous structures are intact. The bowel gas pattern is nonspecific. There is a right upper quad rant calcification likely within the renal pelvis measuring 2.2 cm. Arthropathy of the hips and degenerative change of the spine. Correlate for femoral acetabular imping ement. Surgical clips in the right upper quadrant. IMPRESSION: 1. Nonspecific abdomen. 2. There is a large right renal pelvic calcification measuring 2.2 cm
== END | disposition home or self-care (01) ==
LOC: RADXRMAIN 13:47
PROVIDERS: ATTEND Internal Medicine
DX: N28.89 Other specified disorders of kidney and ureter (principal)
CPT/HCPCS: 74018

== ENCOUNTER → 2020-03-27 | Outpatient (CLI) | payer MEDICARE ==
[2020-03-27 08:52] LABS: African American GFR (CKD) >90 (>60 ml/min/1.73 sqM); Blood Urea Nitrogen 14 mg/dL (9-20); Non-African American GFR(CKD) >90 (>60 ml/min/1.73 sqM)
--- NOTE | 2020-03-27 12:43 | CT ---
EXAMINATION TYPE: CT urogram wo/w con DATE OF EXAM: 03/27/2020 COMPARISON: Prior CT abdomen pelvis 02/13/2011, ultrasound kidneys 08/13/2017 HISTORY: Disorders of kidney and ureters pain CT DLP: 2609 mGycm, Automated Exposure Control for Dose Reduction was Utilized. CONTRAST: CT scan of the abdomen and pelvis is performed with oral and without and with IV Contrast, patient in jected with 100 mL of Isovue 300. Sequential timed delayed imaging was obtained. FINDINGS: LUNG BASES: No significant abnormality is appreciated. LIVER/GB: Patient is post cholecystectomy. Low dense focus within the right lobe of the liver likely represents a cyst and was seen on prior exam measuring approximately 17 mm in size. PANCREAS: No significant abnormality is seen. SPLEEN: No significant abnormality is seen. ADRENALS: No significant abnormality is seen. KIDNEYS: Right kidney shows a pelvic calcification which is developed in the interval and measures ap proximately 19 mm in greatest dimension by 16 mm in cephalad to caudal dimension by 14 mm in AP dimen pardeep. There is some enhancement along the renal pelvic collecting system wall which may be postinflam matory, thickening of the renal collecting system wall is noted on delayed imaging.. Left kidney show s low dense focus posteriorly and laterally likely due to some subcentimeter cortical cysts. Kidneys excrete normally. The mixed density mass at the posterior aspect of the right kidney with some associ ated fat is essentially stable and consistent with angiomyolipoma, fat content is somewhat less consp icuous over. Ureters show normal course and caliber. BOWEL: No significant abnormality is seen. PROSTATE/SEMINAL VESICLES: Prostate is enlarged and shows associated calcifications. LYMPH NODES: No greater than 1cm abdominal or pelvic lymph nodes are appreciated. OSSEOUS STRUCTURES: No significant abnormality is seen. OTHER: Mixed attenuation within the urinary bladder is thought likely due to contrast mixing, urinary bladder is urine distended. Difficult to exclude underlying mucosal mass. IMPRESSION: Renal pelvic calculus, correlate for possible urinary tract infection. 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 Additional limitations as described within the urinary bladder. Prostat e is enlarged. Correlate for bladder outlet obstruction.
== END | disposition home or self-care (01) ==
LOC: RADCTMAIN 08:14
PROVIDERS: ATTEND Internal Medicine
DX: N20.0 Calculus of kidney (principal); N40.0 Benign prostatic hyperplasia without lower urinary tract symptoms
CPT/HCPCS: 82565; 84520; 74178; 36415; 74400; Q9967

== ENCOUNTER → 2020-04-25 | Outpatient (CLI) | payer MEDICARE ==
[2020-04-25 12:33] LABS: Appearance,Urine Clear (Clear); Bilirubin,Urine Negative (Negative); Blood,Urine Large (Negative); Color,Urine Yellow; Glucose,Urine (UA) 2+ (Negative); Ketones,Urine Negative (Negative); Leukocyte Esterase,Urine Small (Negative); Mucus,Urine Few /hpf; Nitrite,Urine Negative (Negative); PH, Urine 5.5 (5.0-8.0); Protein,Urine Trace (Negative); RBC,Urine 83 /hpf (0-5); Specific Gravity,Urine 1.023 (1.001-1.035); Urobilinogen,Urine <2.0 mg/dL (<2.0); WBC,Urine 11 /hpf (0-5)
[2020-04-25 12:40] LABS: Basophils # (A) 0.1 k/uL (0-0.2); Basophils % (A) 1 %; Eosinophils # (A) 0.3 k/uL (0-0.7); Eosinophils % (A) 4 %; HGB 15.3 gm/dL (13.0-17.5); Lymphocytes # (A) 2.8 k/uL (1.0-4.8); Lymphocytes % (A) 28 %; MCH 31.1 pg (25.0-35.0); MCHC 31.3 g/dL (31.0-37.0); MCV 99.3 fL (80.0-100.0); Mean Platelet Volume 6.7; Monocytes # (A) 0.6 k/uL (0-1.0); Monocytes % (A) 6 %; Neutrophils # (A) 5.7 k/uL (1.3-7.7); Neutrophils % (A) 59 %; Platelet Count 249 k/uL (150-450); RBC 4.93 m/uL (4.30-5.90); RDW 13.3 % (11.5-15.5); WBC 9.7 k/uL (3.8-10.6)
[2020-04-25 13:02] LABS: African American GFR (CKD) >90 (>60 ml/min/1.73 sqM); Anion Gap 5 mmol/L; Blood Urea Nitrogen 16 mg/dL (9-20); Calcium 9.2 mg/dL (8.4-10.2); Carbon Dioxide 27 mmol/L (22-30); Chloride 105 mmol/L (98-107); Glucose 131 mg/dL (74-99); Non-African American GFR(CKD) >90 (>60 ml/min/1.73 sqM); Potassium 5.1 mmol/L (3.5-5.1); Sodium 137 mmol/L (137-145)
== END | disposition home or self-care (01) ==
LOC: LABPAT 09:15
PROVIDERS: ATTEND Urology
DX: Z01.818 Encounter for other preprocedural examination (principal); N20.0 Calculus of kidney; R31.29 Other microscopic hematuria; E11.9 Type 2 diabetes mellitus without complications
CPT/HCPCS: 80048; 81001; 85025; 87086

== ENCOUNTER 2020-05-01 06:26 | Day surgery (SDC) | payer MEDICARE ==
[2020-04-26 16:34] VITALS: BMI 30.4
--- NOTE | 2020-04-30 20:17 | P.GSHP ---
History of Present Illness H&P Date: 04/30/20 64 yo male with a 21mm right renal pelvic stone with pain comes for a pcnl right.The risks complications and alternatives have been discussed He comes for this procedure. - Constitutional Constitutional: Denies chills, Denies fever - EENT Eyes: denies blurred vision, denies pain Ears, nose, mouth and throat: Denies headache, Denies sore throat - Cardiovascular Cardiovascular: Denies chest pain, Denies shortness of breath - Respiratory Respiratory: Denies cough, Denies 7 - Gastrointestinal Gastrointestinal: Denies abdominal pain, Denies diarrhea, Denies nausea, Denies vomiting - Genitourinary (Female) Genitourinary: Denies dysuria, Denies hematuria - Genitourinary (Male) Genitourinary: Denies dysuria, Denies hematuria - Musculoskeletal Musculoskeletal: Denies myalgias - Integumentary Integumentary: Denies pruritus, Denies rash - Neurological Neurological: Denies numbness, Denies weakness - Psychiatric Psychiatric: Denies anxiety, Denies depression - Endocrine Endocrine: Denies fatigue, Denies weight change Past Medical History Past Medical History: Atrial Fibrillation, Coronary Artery Disease (CAD), Diabetes Mellitus, Hyperlipidemia, Hypertension, Osteoarthritis (OA), Prostate Disorder Additional Past Medical History / Comment(s): A-FIB (1982) .,type II DIABETES.,NEPHROLITHIASIS, DIVERTICULAR DISEASE. History of Any Multi-Drug Resistant Organisms: None Reported Past Surgical History: Cholecystectomy, Coronary Bypass/CABG, Heart Catheterization With Stent, Hernia Repair, Orthopedic Surgery Additional Past Surgical History / Comment(s): 2008 CABG 3 vessels, R inguinal hernia repair, LEFT knee arthroscopy, colonoscopy., CARDIAC CATH WITH 2 STENTS (2018-[facility]) Past Anesthesia/Blood Transfusion Reactions: No Reported Reaction Date of Last Stent Placement:: 2017 Past Psychological History: No Psychological Hx Reported Additional Psychological History / Comment(s): . Smoking Status: Current every day smoker Past Alcohol Use History: None Reported Additional Past Alcohol Use History / Comment(s): started cigarette smoking in 1967 and smoked them for a number of years then eventually switched to small cigars. , smokes small cigars daily . Past Drug Use History: None Reported - Past Family History Father Family Medical History: No Reported History Additional Family Medical History / Comment(s): . Mother Family Medical History: No Reported History, Osteoarthritis (OA) Additional Family Medical History / Comment(s): . Brother(s) Family Medical History: Coronary Artery Disease (CAD) Sister(s) Family Medical History: Mitral Valve Prolapse (MVP) Daughter(s) Family Medical History: No Reported History Son(s) Family Medical History: No Reported History Medications and Allergies Home Medications Medication Instructions Recorded Confirmed Type Aspirin EC [Ecotrin Low Dose] 81 mg PO DAILY 11/23/17 04/26/20 History Atorvastatin [Lipitor] 80 mg PO HS 11/23/17 04/26/20 History Glimepiride [Amaryl] 4 mg PO BID 11/23/17 04/26/20 History Metoprolol Tartrate [Lopressor] 50 mg PO BID 11/23/17 04/26/20 History sitaGLIPtin PHOS/metFORMIN HCL 1 tab PO DAILY 11/23/17 04/26/20 History [Janumet Xr 100-1,000 mg Tablet] lisinopriL [Zestril] 10 mg PO DAILY #30 tab 11/25/17 04/26/20 Rx Clopidogrel [Plavix] 75 mg PO DAILY 04/26/20 04/26/20 History Dulaglutide [Trulicity] 0.75 mg SQ WEEKLY 04/26/20 04/26/20 History Oxymetazoline 0.05% Nasl [place] 1 spray EA NOSTRIL HS PRN 04/26/20 04/26/20 History [Afrin 0.05% Nasal [place]] Allergies Allergy/AdvReac Type Severity Reaction Status Date / Time No Known Allergies Allergy Verified 04/26/20 15:57 Surgical - Exam - General well developed, well nourished, no distress - Eyes PERRL - ENT no hearing loss - Neck trachea midline - Respiratory normal expansion, normal respiratory effort - Cardiovascular Rhythm: irregularly irregular - Abdomen Abdomen: soft, non tender - Genitourinary normal penis with no external lesions, testicles present - Integumentary no rash - Neurologic normal coordination, normal sensation - Musculoskeletal normal gait, normal posture - Psychiatric oriented to time, oriented to person, oriented to place, speech is normal, memory intact Results - Imaging Abdominal x-ray: report reviewed, image reviewed CT scan - abdomen: report reviewed, image reviewed CT scan - pelvis: report reviewed, image reviewed Assessment and Plan Assessment: Impression: Right renal stone large, multiple medical ilnsses. Plan: PCNL right
[~2020-05-01 06:26] MED LIST: DEXAMETHASONE SOD PHOSPHATE 10 MG/ML 1 ML VIAL IV ONE; LIDOCAINE 1% (10MG/ML) FOR IV START INTRADERMA PRN; MIDAZOLAM 2 MG/2 ML VIAL IV PRN; ONDANSETRON 4 MG/2 ML VIAL IVP ONE
--- NOTE | 2020-05-01 06:43 | XR ---
EXAMINATION TYPE: XR KUB DATE OF EXAM: 05/01/2020 COMPARISON: 03/12/2020 HISTORY: Right kidney stone TECHNIQUE: Single view FINDINGS: There is 1.6 cm calculus over the right kidney. This appears not significantly different th an recent exam. There is no sign of intestinal obstruction or pneumoperitoneum. Fecal pattern is norm al. IMPRESSION: Large right renal calculus unchanged.
[2020-05-01 07:09] LABS: Glucose,Whole Blood 178 mg/dL (75-99)
[2020-05-01] MEDS: LACTATED RINGERS 1,000 ML IV SCH (07:13)
[2020-05-01] MEDS ORDERED: PROPOFOL 10 MG/ML 20 ML VIAL IV ONE (07:54)
[2020-05-01] MEDS ORDERED: ROCURONIUM 10 MG/ML (10 ML VIAL) IV ONE (07:54)
[2020-05-01] MEDS ORDERED: MIDAZOLAM 2 MG/2 ML VIAL ONE (07:54)
[2020-05-01] MEDS ORDERED: LIDOCAINE 1% INJ 10MG/ML (20 ML MDV) ONE (07:54)
[2020-05-01] MEDS ORDERED: GLYCOPYRROLATE 0.2 MG/ML 2 ML VIAL ONE (07:54)
[2020-05-01] MEDS ORDERED: NEOSTIGMINE 1 MG/ML 10 ML VIAL ONE (07:54)
[2020-05-01] MEDS ORDERED: PHENYLEPHRINE-0.9% NACL SYG 1 MG/10 ML SYRINGE ONE (07:54)
[2020-05-01] MEDS ORDERED: fentaNYL (PF) 50 MCG/ML 2 ML AMP ONE (07:54)
[2020-05-01] MEDS ORDERED: IOHEXOL 350 MG/ML 50 ML in EMPTY BAG 1 BAG IRRIGATION ONE (08:32)
[2020-05-01] MEDS ORDERED: LACTATED RINGERS 1,000 ML IV ONE (09:46)
[2020-05-01] MEDS ORDERED: OXYMETAZOLINE 0.05% NASL SPRAY 1 SPRAY BOTTLE EA NOSTRIL PRN (09:55)
[2020-05-01] MEDS ORDERED: MAG HYDROX/AL HYDROX/SIMETH 30 ML CUP PO PRN (09:56)
[2020-05-01] MEDS ORDERED: ONDANSETRON 4 MG/2 ML VIAL IVP PRN (09:56)
[2020-05-01] MEDS ORDERED: ACETAMINOPHEN TAB 325 MG TAB PO PRN (09:56)
[2020-05-01] MEDS ORDERED: NALOXONE 0.4 MG/ML 1 ML VIAL IV PRN (09:57)
[2020-05-01] MEDS ORDERED: HYDROmorphone PCA 10 MG/50 ML BAG IV PRN (10:00)
--- NOTE | 2020-05-01 10:02 | P.OP ---
Date of Procedure: 05/01/20 Preoperative Diagnosis: Right renal stone, large (2.1 cm) Postoperative Diagnosis: Same Procedure(s) Performed: Cystoscopy, placement of ureteral catheter, percutaneous nephrostomy (Dr. Wyatt) percutaneous nephrostolithotomy with ultrasound Anesthesia: SEVERINO Surgeon: Mark Barnett Estimated Blood Loss (ml): 100 Pathology: other (Stone) Condition: stable Disposition: PACU Indications for Procedure: The patient is 64. He has a 2.1 cm right renal pelvic stone with colic he comes for percutaneous nephrostolithotomy alternatives have been discussed,risks and complications have been discussed Description of Procedure: The patient is brought to the operating suite. On the transport rai is given a general endotracheal anesthesia. He's placed in a frog position with a sterile prep and drape. Cystoscopy Foroblique lens and 21-[place] sheath id entifies a normal urethra and a nonobstructing prostate. The right ureteral orifice is identified and intubated with a 5-[place] occluding balloon catheter that was passed up into the renal pelvis. Cystoscope was removed. A 16-[place] Elder is introduced and secured to the ureteral catheter. The patient is placed in a prone position with care to airways and extremities. After sterile prep and drape, Dr. Wyatt performed percutaneous access to the right lower pole calyx. I then dilate the tract to 30-[place]. Introduced this rigid nephroscope into the collecting system and remove clot. The stone was seen in the renal pelvis. With ultrasound the stone was broken in either suction out or grabbed with grasping forceps and removed from the renal pelvis. I then pass a flexible scope throughout the collecting system and one small stone was identified and removed. The ureter is open. A 10-[place] J nephrostomy tube was placed in the right renal pelvis. Its position is secured fluoroscopically. It is secured to the skin with 2-0 silk. The patient is awakened and returned recovery room good condition. He tolerated the procedure well and will be observed in the hospital postoperatively. Blood loss is less than 100 mL
[2020-05-01] MEDS: HYDROmorphone 0.5 MG/0.5 ML SYRINGE IVP PRN ×2 (10:20→10:25)
[2020-05-01 10:34] LABS: Glucose,Whole Blood 247 mg/dL (75-99)
[2020-05-01] MEDS ORDERED: INSULIN ASPART (NovoLOG) 100 UNIT/ML VIAL SQ ONE (10:38)
[2020-05-01] MEDS: SODIUM CHLORIDE 0.45% 1,000 ML IV SCH ×2 (11:06→21:11)
--- NOTE | 2020-05-01 13:04 | FL ---
EXAMINATION TYPE: FL Perc Nephrostomy New Access DATE OF EXAM: 05/01/2020 COMPARISON: CT urogram 03/27/2020 HISTORY: Right-sided nephrolithiasis PROCEDURE: Maximal barrier technique was utilized. The skin overlying the right kidney was localized using fluo roscopy and the overlying skin prepped and draped. Following placement of a ureteral occlusion balloo n by the referring clinician, Dr. Barnett, and instillation of air in the renal collecting system, a plasencia itable posterior calyx was chosen. A small skin shruti was made with a scalpel. Access was gained und er fluoroscopy, with a 21-gauge needle to the right kidney. A 0.018 inch wire was advanced. The acc ess site was dilated , access site was upsized, safety wire deployed and subsequently a sheath was ad vanced into the renal pelvis following dilation with balloon along the tract. The patient remained in stable condition without complication during this portion of the procedure. The patient underwent ne phrolithotomy by the referring clinician, Dr. Barnett. The patient was discharged to observation in the care of anesthesia. Total fluoroscopy time: 1.43 minutes Total images obtained: 4 IMPRESSION: STATUS POST NEPHROSTOMY PLACEMENT FOR NEPHROLITHOTOMY WITH FLUOROSCOPIC GUIDANCE. THIS PROCEDURE PER FORMED BY THE UNDERSIGNED.
[2020-05-01] MEDS: metFORMIN 500 MG TAB PO SCH (17:36)
[2020-05-01 20:07] VITALS: RESP 16
[2020-05-01] MEDS: METOPROLOL TARTRATE 50 MG TAB PO SCH (20:15)
[2020-05-01] MEDS ORDERED: ATORVASTATIN 80 MG TAB PO SCH (21:00)
[2020-05-01 21:03] LABS: Glucose,Whole Blood 163 mg/dL (75-99)
[2020-05-01] MEDS: GLIMEPIRIDE 4 MG TAB PO SCH (21:11)
[2020-05-02] MEDS: LACTATED RINGERS 1,000 ML IV SCH (00:18)
[2020-05-02 01:52] VITALS: PULSE 69
--- NOTE | 2020-05-02 06:49 | P.DS ---
Providers Attending physician: Mark Barnett [facility] Course: the patient was admitted the hospital 05/01/2020 for a right percutaneous nephrostolithotomy. He underwent this uneventfully. Postoperatively he did well. His vital signs are stable and afebrile. Urine output is good. Urine is cleared nicely. He'll be discharged home this morning with the nephrostomy tube he'll follow-up in the office next week for nephrostomy tube removal. Path report of the stone is pending. Vital signs are stable condition is good. He'll be given a prescription of Scott. If he has problems his been instructed to contact us. Patient Condition at Discharge: Good Plan - Discharge Summary Discharge Rx Participant: Yes New Discharge Prescriptions: New HYDROcodone/APAP 5-325MG [Scott 5-325] 1 tab PO Q4HR PRN #10 tab PRN Reason: Pain Control No Action sitaGLIPtin PHOS/metFORMIN HCL [Janumet Xr 100-1,000 mg Tablet] 1 tab PO DAILY Metoprolol Tartrate [Lopressor] 50 mg PO BID Glimepiride [Amaryl] 4 mg PO BID Atorvastatin [Lipitor] 80 mg PO HS Aspirin EC [Ecotrin Low Dose] 81 mg PO DAILY lisinopriL [Zestril] 10 mg PO DAILY #30 tab Clopidogrel [Plavix] 75 mg PO DAILY Dulaglutide [Trulicity] 0.75 mg SQ WEEKLY Oxymetazoline 0.05% Nasl [place] [Afrin 0.05% Nasal [place]] 1 spray EA NOSTRIL HS PRN PRN Reason: STUFFY NOSE Discharge Medication List Aspirin EC [Ecotrin Low Dose] 81 mg PO DAILY 11/23/17 [History] Atorvastatin [Lipitor] 80 mg PO HS 11/23/17 [History] Glimepiride [Amaryl] 4 mg PO BID 11/23/17 [History] Metoprolol Tartrate [Lopressor] 50 mg PO BID 11/23/17 [History] sitaGLIPtin PHOS/metFORMIN HCL [Janumet Xr 100-1,000 mg Tablet] 1 tab PO DAILY 11/23/17 [History] lisinopriL [Zestril] 10 mg PO DAILY #30 tab 11/25/17 [Rx] Clopidogrel [Plavix] 75 mg PO DAILY 04/26/20 [History] Dulaglutide [Trulicity] 0.75 mg SQ WEEKLY 04/26/20 [History] Oxymetazoline 0.05% Nasl [place] [Afrin 0.05% Nasal [place]] 1 spray EA NOSTRIL HS PRN 04/26/20 [History] HYDROcodone/APAP 5-325MG [[place] 5-325] 1 tab PO Q4HR PRN #10 tab 05/02/20 [Rx] Follow up Appointment(s)/Referral(s): Mark Barentt MD [STAFF PHYSICIAN] - 05/06/20 Discharge Disposition: HOME SELF-CARE
[2020-05-02] MEDS: metFORMIN 500 MG TAB PO SCH (07:10)
[2020-05-02] MEDS: METOPROLOL TARTRATE 50 MG TAB PO SCH (07:10)
[2020-05-02] MEDS: GLIMEPIRIDE 4 MG TAB PO SCH (07:15)
[2020-05-02 07:36] LABS: Glucose,Whole Blood 146 mg/dL (75-99)
[2020-05-02 07:43] VITALS: BP 114/65; TEMP 98.1
[2020-05-02] MEDS ORDERED: lisinopriL 10 MG TAB PO SCH (09:00)
[2020-05-02] MEDS ORDERED: LINAGLIPTIN 5 MG TABLET PO SCH (09:00)
== END 2020-05-02 09:45 | disposition home or self-care (01) ==
LOC: OR 06:26 → 4SSUR 10:42 → OR 05-02 09:45
PROVIDERS: ATTEND Urology
DX: N20.0 Calculus of kidney (principal); I25.10 Atherosclerotic heart disease of native coronary artery without angina pectoris; I10 Essential (primary) hypertension; I48.91 Unspecified atrial fibrillation; E78.5 Hyperlipidemia, unspecified; F17.210 Nicotine dependence, cigarettes, uncomplicated; E11.9 Type 2 diabetes mellitus without complications; M19.90 Unspecified osteoarthritis, unspecified site; N42.9 Disorder of prostate, unspecified; Z87.442 Personal history of urinary calculi; Z79.82 Long term (current) use of aspirin; Z79.84 Long term (current) use of oral hypoglycemic drugs; Z79.02 Long term (current) use of antithrombotics/antiplatelets; Z79.899 Other long term (current) drug therapy; Z95.5 Presence of coronary angioplasty implant and graft; Z95.1 Presence of aortocoronary bypass graft; Z90.49 Acquired absence of other specified parts of digestive tract; Z98.890 Other specified postprocedural states; Z82.61 Family history of arthritis; Z82.49 Family history of ischemic heart disease and other diseases of the circulatory system
CPT/HCPCS: 84132; 82365; 50432; 74018; 50081; C1769 ×3; C2628; C1894; C1729; J2250; J1100; J2710; J0690; J2405; J2001; J3010; J2370; J2704; Q9967; J1170 ×2; 86850; 86900; 86901

== ENCOUNTER 2022-08-15 15:28 | Emergency (ER) | payer MEDICARE ==
[2022-08-15 15:34] VITALS: TEMP 98.5
[2022-08-15] MEDS ORDERED: DIPH,PERTUS(ACELL)TETVAC-LF 0.5 ML VIAL IM ONE (15:50)
[2022-08-15] MEDS ORDERED: LIDOCAINE 1% INJ 10MG/ML (30 ML VIAL-PF) SQ ONE (15:50)
--- NOTE | 2022-08-15 15:59 | ED ---
Wound/Laceration HPI - General Chief Complaint: Wound/Laceration Stated Complaint: Stitches, LT Hand injury Time Seen by Provider: 08/15/22 15:43 Source: patient Mode of arrival: ambulatory - History of Present Illness Initial Comments: This 66-year-old male who presents for left hand laceration. Patient has small laceration by his thumb due to razor blade. Denies pain, numbness, tingling. Tetanus is not up-to-date. - Related Data Home Medications Medication Instructions Recorded Confirmed Aspirin EC [Ecotrin Low Dose] 81 mg PO DAILY 11/23/17 04/26/20 Atorvastatin [Lipitor] 80 mg PO HS 11/23/17 04/26/20 Glimepiride [Amaryl] 4 mg PO BID 11/23/17 04/26/20 Metoprolol Tartrate [Lopressor] 50 mg PO BID 11/23/17 04/26/20 sitaGLIPtin PHOS/metFORMIN HCL 1 tab PO DAILY 11/23/17 04/26/20 [Janumet Xr 100-1,000 mg Tablet] Clopidogrel [Plavix] 75 mg PO DAILY 04/26/20 04/26/20 Dulaglutide [Trulicity] 0.75 mg SQ WEEKLY 04/26/20 04/26/20 Oxymetazoline 0.05% Nasl [place] 1 spray EA NOSTRIL HS PRN 04/26/20 04/26/20 [Afrin 0.05% Nasal [place]] Previous Rx's Medication Instructions Recorded lisinopriL [Zestril] 10 mg PO DAILY #30 tab 11/25/17 HYDROcodone/APAP 5-325MG [[place] 1 tab PO Q4HR PRN #10 tab 05/02/20 5-325] Allergies Allergy/AdvReac Type Severity Reaction Status Date / Time No Known Allergies Allergy Verified 08/15/22 15:34 Review of Systems ROS Statement: Those systems with pertinent positive or pertinent negative responses have been documented in the HPI. ROS Other: All systems not noted in ROS Statement are negative. Past Medical History Past Medical History: Coronary Artery Disease (CAD), Diabetes Mellitus, GERD/Reflux, Hyperlipidemia, Hypertension, Osteoarthritis (OA), Prostate Disorder Additional Past Medical History / Comment(s): Recent UTI-completed antibiotic, Afib in 1982, NIDDM type II, nephrolithiasis, diverticular dx. History of Any Multi-Drug Resistant Organisms: None Reported Past Surgical History: Cholecystectomy, Coronary Bypass/CABG, Hernia Repair, Orthopedic Surgery Additional Past Surgical History / Comment(s): 2009 CABG 3 vessels, R inguinal hernia repair, R knee arthroscopy, colonoscopy. Past Anesthesia/Blood Transfusion Reactions: No Reported Reaction, Motion Sic kness Past Psychological History: No Psychological Hx Reported Past Alcohol Use History: None Reported Past Drug Use History: None Reported - Past Family History Father Family Medical History: No Reported History Additional Family Medical History / Comment(s): . Mother Family Medical History: No Reported History, Osteoarthritis (OA) Additional Family Medical History / Comment(s): . Brother(s) Family Medical History: Coronary Artery Disease (CAD) Sister(s) Family Medical History: Mitral Valve Prolapse (MVP) Daughter(s) Family Medical History: No Reported History Son(s) Family Medical History: No Reported History General Exam General appearance: alert, in no apparent distress Head exam: Present: atraumatic, normocephalic, normal inspection Respiratory exam: Present: normal lung sounds bilaterally. Absent: respiratory distress, wheezes, rales, rhonchi, stridor Cardiovascular Exam: Present: regular rate, normal rhythm, normal heart sounds. Absent: systolic murmur, diastolic murmur, rubs, gallop, clicks Extremities exam: Present: other (1 cm lac proximal to webbing of left first and second digits of left hand dorsally. No tendon involvement. Full range of motion. Cap refill less than 2 seconds) Course Vital Signs 08/15/22 08/15/22 15:31 16:25 Temperature 98.5 F Pulse Rate 88 71 Respiratory 16 18 Rate Blood Pressure 121/75 103/67 O2 Sat by Pulse 96 97 Oximetry Procedures - Laceration Laceration #1 Indication: laceration Site: hand Size (cm): 1 Anesthesia Technique: local infiltration Pre-repair: wound explored, irrigated extensively Type of Sutures: nylon Size of Sutures: 5-0 Number of Sutures: 3 Technique: simple, interrupted Patient Tolerated Procedure: well, no complications Medical Decision Making - Medical Decision Making Was pt. sent in by a medical professional or institution (, PA, EDUCATION PROFESSIONAL, urgent care, hospital, or longterm...) When possible be specific @ -[No] Did you speak to anyone other than the patient for history (EMS, parent, family, police, friend...)? What history was obtained from this source @ -[No] Did you review nursing and triage notes (agree or disagree)? Why? @ -[I reviewed and agree with nursing and triage notes] Were old charts reviewed (outside hosp., previous admission, EMS record, old EKG, old radiological studies, urgent care reports/EKG's, longterm records)? Report findings @ -[No old charts were reviewed] Differential Diagnosis (chest pain, altered mental status, abdominal pain women, abdominal pain men, vaginal bleeding, weakness, fever, dyspnea, syncope, headache, dizziness, GI bleed, back pain, seizure, CVA, palpatations, mental health)? @ -Laceration, abrasion, tendon injury EKG interpreted by me (3pts min.). @ -[As above] X-rays interpreted by me (1pt min.). @ -[None done] CT interpreted by me (1pt min.). @ -[None done] U/S interpreted by me (1pt. min.). @ -[None done] What testing was considered but not performed or refused? (CT, X-rays, U/S, la bs)? Why? @ -[None] What meds were considered but not given or refused? Why? @ -[None] Did you discuss the management of the patient with other professionals (professionals i.e. , PA, EDUCATION PROFESSIONAL, lab, RT, psych nurse, social work case manager, hook and eye attacher, teacher, client sales and service officer, caseworker intake)? Give summary @ -[No] Was smoking cessation discussed for >3mins.? @ -[No] Was critical care preformed (if so, how long)? @ -[No] Were there social determinants of health that impacted care today? How? (Homelessness, low income, unemployed, alcoholism, drug addiction, transportation, low edu. Level, literacy, decrease access to med. care, [facility], rehab)? @ -[No] Was there de-escalation of care discussed even if they declined (Discuss DNR or withdrawal of care, Hospice)? DNR status @ -[No] What co-morbidities impacted this encounter? (DM, HTN, Smoking, COPD, CAD, Cancer, CVA, ARF, Chemo, Hep., AIDS, mental health diagnosis, sleep apnea, morbid obesity)? @ -[None] Was patient admitted / discharged? Hospital course, mention meds given and route, prescriptions, significant lab abnormalities, going to OR and other pe rtinent info. @ Discharged. Laceration repair. wound care discussed in detail. Tetanus updated Undiagnosed new problem with uncertain prognosis? @ -[No] Drug Therapy requiring intensive monitoring for toxicity (Heparin, Nitro, Insulin, Cardizem)? @ -[No] Were any procedures done? @ -Yes, laceration repair Diagnosis/symptom? @ -Laceration Acute, or Chronic, or Acute on Chronic? @ -Acute Uncomplicated (without systemic symptoms) or Complicated (systemic symptoms)? @ -Uncomplicated Side effects of treatment? @ -[No] Exacerbation, Progression, or Severe Exacerbation? @ -[No] Poses a threat to life or bodily function? How? (Chest pain, [place], [place], pneumonia, PE, COPD, DKA, ARF, appy, cholecystitis, CVA, Diverticulitis, Homicidal, Suicidal, threat to staff... and all critical care pts) @ -[No] Dr. Giron is my attending Disposition Clinical Impression: Laceration Disposition: HOME SELF-CARE Condition: Good Instructions (If sedation given, give patient instructions): Care For Your Stitches (ED), Laceration (ED) Additional Instructions: Leave wound uncovered. Keep wound clean and dry. Wash with a mild soap. Take Tylenol or anti-inflammatories such as Motrin for pain. Follow-up with primary care provider in 1-2 days. Return for suture removal in 7-10 days. Report back to the emergency department if you experience new, concerning, or worsening symptoms. Is patient prescribed a controlled substance at d/c from ED?: No Referrals: Sherman Rodriguez MD [Primary Care Provider] - 1-2 days
[2022-08-15 16:27] VITALS: BP 103/67; PULSE 71; RESP 18
== END 2022-08-15 16:26 | disposition home or self-care (01) ==
LOC: EC 15:28
DX: S61.412A Laceration without foreign body of left hand, initial encounter (principal); I10 Essential (primary) hypertension; I25.10 Atherosclerotic heart disease of native coronary artery without angina pectoris; I48.91 Unspecified atrial fibrillation; E11.9 Type 2 diabetes mellitus without complications; E78.5 Hyperlipidemia, unspecified; Z79.02 Long term (current) use of antithrombotics/antiplatelets; Z79.82 Long term (current) use of aspirin; Z79.84 Long term (current) use of oral hypoglycemic drugs; Z79.899 Other long term (current) drug therapy; Z23 Encounter for immunization; X58.XXXA Exposure to other specified factors, initial encounter
CPT/HCPCS: 12001; 99282; 90715; 90471; J2001

== ENCOUNTER → 2023-06-29 | Outpatient (CLI) | payer MEDICARE ==
--- NOTE | 2023-06-29 09:10 | CTL ---
EXAMINATION TYPE: CT Low Dose Lung DATE OF EXAM ORDERED: 06/29/2023 COMPARISON: 03/19/2020 HISTORY: . Low Dose CT Lung Screening CT DLP: 94.[address] CTDI: 2.6 mGy IV CONTRAST USED: None. SCREENING VISIT: Second TECHNIQUE: Low dose computed tomography scan was performed through the chest at 1 millimeter thick se ctions and reconstructed images in the coronal plane at [address] DIAGNOSTIC QUALITY: Satisfactory FINDINGS: LUNG NODULES: Not presentLeft lung: no nodules identified.Right lung: no nodules identified. LUNGS: COPD: Severity: None Fibrosis: Severity:None Lymph nodes: None Other findings: None RIGHT PLEURAL SPACE: Effusion: None Calcification: None Thickening: None Pneumothorax: None LEFT PLEURAL SPACE: Effusion: None Calcification: None Thickening: None Pneumothorax: None HEART: Heart Size: Mildly enlarged Coronary calcification: Mild Pericardial effusion: None OTHER FINDINGS: Upper abdomen: The gallbladder is surgically absent. Bony thorax: Degenerative changes Supraclavicular region: No significant abnormalityOther: No significant abnormalityI IMPRESSION: Gallbladder surgically absent. FOLLOW UP CT CHEST RECOMMENDATION: Follow-up screening in one year CT LUNG RAD: LUNG RAD CATEGORY Lung-Rad 1 Negative: Continue annual screening with LDCT in 12 months
== END | disposition home or self-care (01) ==
LOC: RADCTMAIN 08:06
PROVIDERS: ATTEND Internal Medicine
DX: Z12.2 Encounter for screening for malignant neoplasm of respiratory organs (principal); F17.210 Nicotine dependence, cigarettes, uncomplicated; Z90.49 Acquired absence of other specified parts of digestive tract
CPT/HCPCS: 71271

== ENCOUNTER → 2023-08-31 | Outpatient (CLI) | payer MEDICARE ==
[2023-08-31 15:44] LABS: ALT 31 U/L (10-49); AST 18 U/L (14-35); Chol/HDL Ratio 2.39 Ratio; LDL Cholesterol,Calculated 32.2 mg/dL (0.0-131.0); VLDL Calculation 19.62 mg/dL (5.00-40.00)
== END | disposition home or self-care (01) ==
LOC: LABWHC1 06:57
PROVIDERS: ATTEND Internal Medicine Interventional Cardiology
DX: E78.2 Mixed hyperlipidemia (principal)
CPT/HCPCS: 36415; 80061; 84450; 84460

== ENCOUNTER → 2024-04-12 | Outpatient (CLI) | payer MEDICARE ==
--- NOTE | 2024-04-12 13:03 | XR ---
EXAMINATION TYPE: XR lumbar spine 2 or 3V DATE OF EXAM: 04/12/2024 12:38 PM CLINICAL INDICATION: Male, 68 years old with history of M25.551 PAIN IN RIGHT HIP; [facility] COMPARISON: None TECHNIQUE: XR lumbar spine 2 or 3V - Frontal, lateral and coned in L5-S1 lateral views of the spine. FINDINGS: No evidence of any acute osseous pathology. No evidence of loss of vertebral body height i s seen. There is normal alignment of the lumbar vertebral bodies. Scattered disc space narrowing. Mul tilevel marginal osteophyte formation throughout the visualized spine. There is facet joint arthropat hy throughout the spine. Scattered at least mild neural foraminal stenosis. Right upper quadrant chol ecystectomy clips. Atherosclerotic arterial vasculature. IMPRESSION: 1. No acute fracture. 2. Moderate multilevel disc degeneration. [facility], , 04/12/2024 1:01 PM
--- NOTE | 2024-04-12 13:04 | XR ---
EXAMINATION TYPE: XR femur RT DATE OF EXAM: 04/12/2024 12:38 PM CLINICAL INDICATION: Male, 68 years old with history of M25.551 PAIN IN RIGHT HIP; [facility] COMPARISON: None TECHNIQUE: XR femur RT examined in Frontal and lateral projections. FINDINGS: No evidence of acute osseous pathology, joint dislocation, or soft tissue swelling. Mild t o moderate Osteophyte formations of the superior acetabulum. Mild joint space narrowing. Severe joint space narrowing of the patellofemoral joint with osteophyte formation patellofemoral james nt. Mild osteophytes of the tibial plateau. IMPRESSION: 1. No acute osseous pathology. 2. 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 3. Moderate right hip osteoporosis [facility], , 04/12/2024 1:02 PM
--- NOTE | 2024-04-12 13:05 | XR ---
EXAMINATION TYPE: XR Hip Complete RT DATE OF EXAM: 04/12/2024 12:38 PM CLINICAL INDICATION: Male, 68 years old with history of M25.551 PAIN IN RIGHT HIP; [facility] COMPARISON: None. TECHNIQUE: XR Hip Complete RT; hip was examined in the frontal and lateral projections and a AP pelvi s. FINDINGS: No evidence for acute process, joint dislocation or significant soft tissue swelling. Osteo phyte formation of the superior acetabulum of the hip. There is mild joint space narrowing. IMPRESSION: 1. No evidence for acute process. 2. Moderate hip osteoarthrosis. [facility], , 04/12/2024 1:03 PM
== END | disposition home or self-care (01) ==
LOC: RADXRWHC 12:00
PROVIDERS: ATTEND Internal Medicine
DX: M25.551 Pain in right hip
CPT/HCPCS: 72100; 73502

== ENCOUNTER → 2024-08-15 | Outpatient (CLI) | payer MEDICARE ==
--- NOTE | 2024-08-15 21:46 | CTL ---
EXAMINATION TYPE: CT Low Dose Lung DATE OF EXAM: 08/15/2024 8:49 AM COMPARISON: None. CLINICAL INDICATION: Male, 68 years old with history of Z12.2 LUNG CA SCREEN F17.210 CURRENT SMOKER; Personal hx nicotine dependence current smoker, 1 ppd x 25 years, hx CAD, history of tobacco use. TECHNIQUE: Multiple axial non-contrast scans were obtained from approximately the lung apices through the upper abdomen. Coronal and sagittal reformatted images were obtained. Low dose technique was uti lized. MIP were created on a separate workstation and submitted for review. CT DLP: 138.20 mGycm, Automated exposure control for dose reduction was used. CT Contrast: Contrast used: None Oral contrast used: None FINDINGS: Lack of intravenous contrast and low dose technique limits the evaluation of the vascular and soft ti ssue structures. LUNGS: No evidence of pulmonary fibrosis. No evidence of focal consolidation, pneumothorax or pleural effusion. Centrilobular emphysema changes. Nodules: RUL: None. RML: None. RLL: None. SHARLENE: None. LLL: None. AIRWAY: Patent and unremarkable. HEART: Size within normal limits.Atherosclerosis of the arterial vasculature. MEDIASTINUM: No gross evidence of adenopathy. VASCULATURE: No aortic aneurysm. MUSCULOSKELETAL: Mild disc degeneration changes are present throughout the thoracolumbar spine. Estevez otomy wires present. SOFT TISSUES/LYMPH NODES: Unremarkable. LOWER NECK: No significant findings. UPPER ABDOMEN: Gallbladder is surgically absent. IMPRESSION: 1. No clinically significant pulmonary nodules. 2. Mild emphysema. 3. Severe coronary artery atherosclerosis. CT LUNG RAD AND CT CHEST RECOMMENDATION: Lung-Rad 1 Negative: Continue annual screening with LDCT in 12 months. S Modifier (other clinically significant findings): None Recommend smoking cessation (if current smoker), or continuation of smoking cessation (if prior smoke r). Annual screening for lung cancer with low-dose computed tomography is recommended in adults ages 55 to 77 years who have a 30 pack-year smoking history and currently smoke or have quit within the pa st 15 years. Screening should be discontinued once a person has not smoked for 15 years or develops a health problem that substantially limits life expectancy or the ability or willingness to have curat jonathan lung surgery. Lung rads 2021 [email or web address] [facility], , 08/15/2024 9:43 PM
== END | disposition home or self-care (01) ==
LOC: RADCTMAIN 08:15
PROVIDERS: ATTEND Internal Medicine
DX: Z12.2 Encounter for screening for malignant neoplasm of respiratory organs (principal); F17.210 Nicotine dependence, cigarettes, uncomplicated; J43.9 Emphysema, unspecified; I25.10 Atherosclerotic heart disease of native coronary artery without angina pectoris; Z90.89 Acquired absence of other organs
CPT/HCPCS: 71271

== ENCOUNTER → 2025-02-16 | Outpatient (CLI) | payer MEDICARE ==
[2025-02-16 10:39] LABS: ALT 54 U/L (10-49); AST 35 U/L (14-35); Cholesterol 124.00 mg/dL (0.00-200.00); HDL Cholesterol 33.10 mg/dL (40.00-60.00); LDL Cholesterol,Calculated 44.1 mg/dL (0.0-131.0); Triglycerides 234.00 mg/dL (0.00-149.00); VLDL Calculation 46.80 mg/dL (5.00-40.00)
== END | disposition home or self-care (01) ==
LOC: LABWHC1 07:16
PROVIDERS: ATTEND Internal Medicine Interventional Cardiology
DX: E78.2 Mixed hyperlipidemia (principal)
CPT/HCPCS: 36415; 80061; 84450; 84460